=== PATIENT | female | born 1940 | race Caucasian/White ===

== ENCOUNTER → 2016-09-26 | Outpatient (CLI) | payer MEDICARE, OTHER ==
[~2016-09-26] MED LIST: CARI-277 PO; FENT12DI TD
== END | disposition home or self-care (01) ==
LOC: LAB 13:12
PROVIDERS: ATTEND Internal Medicine Gastroenterology
DX: B19.20 Unspecified viral hepatitis C without hepatic coma (principal)

== ENCOUNTER 2017-05-22 15:04 | Emergency (ER) | payer MEDICARE, MEDICAID ==
[~2017-05-22] VITALS: Ht 154.9 cm; Wt 61.2 kg
[2017-05-22 15:17] VITALS: BP 127/75
[2017-05-22] MEDS ORDERED: HYDROmorphone HCL 2 MG/ML VL IM ONE (16:00)
[2017-05-22] MEDS ORDERED: ONDANSETRON ODT 4 MG TAB PO ONE (16:00)
== END 2017-05-22 16:45 | disposition home or self-care (01) ==
LOC: ER 15:11
DX: S33.5XXA Sprain of ligaments of lumbar spine, initial encounter (principal); X58.XXXA Exposure to other specified factors, initial encounter; Y93.89 Activity, other specified; Y99.8 Other external cause status; I10 Essential (primary) hypertension; J45.909 Unspecified asthma, uncomplicated; G89.29 Other chronic pain; M54.5 Low back pain; Z90.49 Acquired absence of other specified parts of digestive tract; Z90.79 Acquired absence of other genital organ(s); Z79.899 Other long term (current) drug therapy; Y92.89 Other specified places as the place of occurrence of the external cause
CPT/HCPCS: 93005; 96372; 99283; J1170; Q0162

== ENCOUNTER → 2018-01-30 | Outpatient (CLI) | payer MEDICARE, OTHER | END | disposition home or self-care (01) | LOC: LAB 12:29 | PROVIDERS: ATTEND Physician Assistant | DX: R19.7 Diarrhea, unspecified (principal); R19.5 Other fecal abnormalities; I10 Essential (primary) hypertension | CPT/HCPCS: 87045; 87177; 87899 ==

== ENCOUNTER 2019-07-02 11:34 | Emergency (ER) | payer MEDICARE, OTHER ==
[~2019-07-02] VITALS: Ht 154.9 cm; Wt 61.2 kg
[2019-07-02] MEDS ORDERED: LIDOCAINE 1% HCL (LOCAL ANESTH.) INJ 20ML MDV IJ ONE (14:45)
[2019-07-02] MEDS ORDERED: BACITRACIN TOP OINT 1 UD PKG TOP ONE (15:30)
[2019-07-02] MEDS ORDERED: KETOROLAC TROMETH 60MG/2ML VIAL IM ONE (15:30)
[2019-07-02 15:54] VITALS: BP 135/54
== END 2019-07-02 15:51 | disposition home or self-care (01) ==
LOC: ER 11:34
DX: S61.411A Laceration without foreign body of right hand, initial encounter (principal); Z90.710 Acquired absence of both cervix and uterus; W21.09XA Struck by other hit or thrown ball, initial encounter; Y93.89 Activity, other specified; Y92.89 Other specified places as the place of occurrence of the external cause; Y99.8 Other external cause status
CPT/HCPCS: 12002; 96372; 99283; J1885; J2001

== ENCOUNTER → 2021-10-15 | Outpatient (CLI) | payer MEDICARE, MEDICAID | END | disposition home or self-care (01) | LOC: RT 11:06 | PROVIDERS: ATTEND Internal Medicine Pulmonary Disease | DX: J45.909 Unspecified asthma, uncomplicated (principal); R06.02 Shortness of breath | CPT/HCPCS: 94060; 94727; 94729 ==

== ENCOUNTER 2024-03-21 08:49 | Day surgery (SDC) | payer OTHER, MEDICAID ==
[2024-03-20 09:42] LABS: Urine Bacteria None Seen /hpf (None Seen)
[2024-03-20 09:47] LABS: Basophils # (auto) 0 10 ^3/uL (0-0.2); Basophils % (auto) 0.8 % (0.0-2.0); Eosinophils # (auto) 0.5 10 ^3/uL (0-0.8); Eosinophils % (auto) 9.6 % (0.0-7.0); Hematocrit 38.4 % (36.0-46.0); Hemoglobin 12.8 g/dL (12.2-16.2); Lymphocytes # (auto) 1.5 10 ^3/uL (0.4-5.4); Lymphocytes % (auto) 28.8 % (10.0-50.0); Mean Corpuscular Hemoglobin 29.9 pg (28.0-32.0); Mean Corpuscular Hgb Conc. 33.4 g/dL (32.0-36.0); Mean Corpuscular Volume 89.8 fL (80.0-100.0); Monocytes # (auto) 0.5 10 ^3/uL (0-1.3); Monocytes % (auto) 9.9 % (0.0-12.0); Neutrophils # (auto) 2.7 10 ^3/uL (1.6-8.6); Neutrophils % (auto) 50.9 % (37.0-80.0); Platelet Count (auto) 211 10^3/uL (140-450); Red Blood Cells 4.28 10^6/uL (4.0-5.20); Red Cell Distribution Width 13.8 % (11.8-14.3); White Blood Cell 5.2 10^3/uL (4.4-10.8)
[2024-03-20 09:59] LABS: Urine Blood Negative /uL (Negative); Urine Clarity Clear (Clear); Urine Color Yellow (Yellow); Urine Protein, UAD Negative (Negative); Urine Specific Gravity 1.012 (1.001-1.035); Urine Urobilinogen Normal (Negative); Urine WBC 2 /hpf (0 - 5); Urine pH 7.5 (5.0-9.0)
[2024-03-20 10:07] LABS: INR 0.96 (0.9-1.15); Partial Thromboplastin Time 26.2 SEC (24.5-34.5); Prothrombin Time 10.2 sec (9.3-11.8)
[2024-03-20 10:18] LABS: Alanine Aminotransferase 15 U/L (7-40); Alkaline Phosphatase 71 U/L (46-116); Anion Gap 6 (5-15); BUN/Creatinine Ratio 12.7 (10.0-20.0); Blood Urea Nitrogen 9 mg/dL (9-23); Carbon Dioxide 29 mmol/L (20-31); Chloride 109 mmol/L (98-107); Glucose 101 mg/dL (74-106); Potassium 4.6 mmol/L (3.5-5.1); Sodium 144 mmol/L (136-145)
[2024-03-20 10:19] LABS: Albumin 4.5 g/dL (3.2-4.8); Aspartate Aminotransferase 14 U/L (13-40); Bilirubin, Total 0.6 mg/dL (0.2-1.0); Total Protein 7.2 g/dL (5.7-8.2)
[~2024-03-21] VITALS: Ht 154.9 cm; Wt 58.1 kg
[~2024-03-21 08:49] MED LIST changes: -CARI-277 PO
[2024-03-21] MEDS ORDERED: fentaNYL CITRATE 100 MCG/2 ML VL ONE (13:08)
[2024-03-21] MEDS ORDERED: PROPOFOL 10 MG/ML 20 ML IV ONE (13:08)
--- NOTE | 2024-03-21 13:24 | DVHDS2 ---
New Physician D'charge PN Admitting Diagnosis Admitting Diagnosis Hemorrhagic cystitis Discharge Diagnosis Same Operations or Procedures Cystoscopy with biopsy and fulguration Reason(s) For Hospitalization Surgery Treatment Plan Discharge Condition of Discharge Fair Disposition Home Discharge Instructions Diet: Regular Activity: Light activity Activity comment: As tolerated Medications: Given Follow Up Care Follow Up/Referral: Follow-up two weeks for pathology results Discharge Statement: "Patient was advised to return to the ER or call 911 if any headaches, dizziness, shortness of breath, chest pain, abdominal pain, bleeding, fevers, or worsening of medical condition. Patient was counseled about treatment plan, medications, possible side effects, patientverbalized understanding. All questions were answered to the best of my ability. This discharge took greater then 30 minutes in planning, reviewing documenta tion, counseling the patient, and discussing with other team members." CATARINO SAGASTUME MD Mar 21, 2024 13:24
[2024-03-21] MEDS ORDERED: DexAMETHasone SOD PHOS 10MG/1ML VIAL INJ ONE (13:33)
[2024-03-21] MEDS ORDERED: ONDANSETRON HCL 4 MG/2 ML VIAL ONE (13:33)
[2024-03-21 13:56] VITALS: PULSE 79; RESP 18; TEMP 97.8; O2SAT 97
[2024-03-21 14:35] VITALS: BP 129/55; PULSE 65; RESP 15; O2SAT 98
== END 2024-03-21 14:50 | disposition home or self-care (01) ==
LOC: SUR 08:49
PROVIDERS: ATTEND Urology
DX: N30.80 Other cystitis without hematuria (principal); J44.9 Chronic obstructive pulmonary disease, unspecified; Z86.2 Personal history of diseases of the blood and blood-forming organs and certain disorders involving the immune mechanism; Z98.890 Other specified postprocedural states; Z88.5 Allergy status to narcotic agent; Z83.3 Family history of diabetes mellitus; Z82.5 Family history of asthma and other chronic lower respiratory diseases
CPT/HCPCS: 36415; 52204; 80053; 81001; 85025; 85610; 85730; 87086; J1100; J2405; J2704; J3010; J7030

== ENCOUNTER → 2024-05-31 | Outpatient (CLI) | payer OTHER ==
[2024-05-31 12:09] LABS: Basophils # (auto) 0.1 10 ^3/uL (0-0.2); Basophils % (auto) 1.2 % (0.0-2.0); Eosinophils # (auto) 0.1 10 ^3/uL (0-0.8); Eosinophils % (auto) 2.2 % (0.0-7.0); Hematocrit 39.3 % (36.0-46.0); Hemoglobin 13.1 g/dL (12.2-16.2); Lymphocytes % (auto) 43.6 % (10.0-50.0); Mean Corpuscular Hemoglobin 29.9 pg (28.0-32.0); Mean Corpuscular Hgb Conc. 33.4 g/dL (32.0-36.0); Mean Corpuscular Volume 89.6 fL (80.0-100.0); Monocytes # (auto) 0.3 10 ^3/uL (0-1.3); Monocytes % (auto) 7.6 % (0.0-12.0); Neutrophils # (auto) 2.1 10 ^3/uL (1.6-8.6); Neutrophils % (auto) 45.4 % (37.0-80.0); Nucleated Red Blood Cells % 0.1 %; Platelet Count (auto) 208 10^3/uL (140-450); Red Blood Cells 4.38 10^6/uL (4.0-5.20); Red Cell Distribution Width 13.4 % (11.8-14.3); White Blood Cell 4.6 10^3/uL (4.4-10.8)
[2024-05-31 12:33] LABS: Alanine Aminotransferase 20 U/L (7-40); Albumin 4.7 g/dL (3.2-4.8); Alkaline Phosphatase 67 U/L (46-116); Anion Gap 7 (5-15); Aspartate Aminotransferase 18 U/L (13-40); BUN/Creatinine Ratio 16.7 (10.0-20.0); Blood Urea Nitrogen 14 mg/dL (9-23); Calcium 10.4 mg/dL (8.7-10.4); Carbon Dioxide 27 mmol/L (20-31); Chloride 107 mmol/L (98-107); Glucose 96 mg/dL (74-106); Potassium 3.9 mmol/L (3.5-5.1); Sodium 141 mmol/L (136-145); Triglycerides 91 mg/dL (< 150)
[2024-05-31 12:34] LABS: Bilirubin, Total 0.8 mg/dL (0.2-1.0); Total Protein 7.6 g/dL (5.7-8.2)
[2024-05-31 12:39] LABS: Cholesterol 210 mg/dL (< 200); HDL Cholesterol 71 mg/dL (40-59); LDL Cholesterol 128 mg/dL (< 100)
[2024-05-31 12:40] LABS: Free T3 2.96 pg/mL (2.3-4.2)
[2024-05-31 12:41] LABS: Free T4 (Free Thyroxine) 0.99 ng/dL (0.89-1.76)
[2024-05-31 12:43] LABS: Urine Bacteria FEW /hpf (None Seen); Urine Blood 1+ /uL (Negative); Urine Budding Yeast OCCASIONAL /hpf (None Seen); Urine Clarity Clear (Clear); Urine Color Yellow (Yellow); Urine Mucus FEW (None Seen); Urine Protein, UAD TRACE (Negative); Urine Specific Gravity 1.025 (1.001-1.035); Urine Squamous Epithelial Cell FEW /hpf (<5); Urine Urobilinogen Normal (Negative); Urine WBC 9 /hpf (0 - 5)
== END | disposition home or self-care (01) ==
LOC: LAB 11:43
PROVIDERS: ATTEND Internal Medicine
DX: E55.9 Vitamin D deficiency, unspecified (principal); E78.5 Hyperlipidemia, unspecified; N39.0 Urinary tract infection, site not specified; R42 Dizziness and giddiness; I12.9 Hypertensive chronic kidney disease with stage 1 through stage 4 chronic kidney disease, or unspecified chronic kidney disease; N18.2 Chronic kidney disease, stage 2 (mild); Z13.1 Encounter for screening for diabetes mellitus
CPT/HCPCS: 36415; 80053; 80061; 80198; 81001; 82306; 83036; 84439; 84443; 84481; 85025; 86703

== ENCOUNTER 2024-07-11 16:06 | Emergency (ER) | payer OTHER, MEDICAID ==
[~2024-07-11] VITALS: Ht 157.5 cm; Wt 61.0 kg
[2024-07-11 16:14] VITALS: BP 132/71; PULSE 67; RESP 14; O2SAT 98
--- NOTE | 2024-07-11 16:33 | ED.PDOC ---
GI ASSESSMENT HPI Comments 84y F who presents to the ED for chief complaint of nausea and vomiting. Pt states she has been having epigastric abdominal pain since 3 AM earlier this AM. Pt states she has been having associated nasuea and vomiting since and states she has had 10 vomiting episodes since. Pt otherwise states the pain is non-radiating, constant, radiating to the upper chest, with no associated exacerbating or relieving factors. Pt denies any recent sick contacts or changes to diet. Pt otherwise denies any other symptoms at this time. 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 History Family History Family History: Unknown Social History Smoker: Non-Smoker Alcohol: Denies ETOH Use Drugs: Denies Drug Use Lives In: Home Constitutional: denies: chills, diaphoresis, fatigue, fever, malaise, sweats, weakness, others EENTM: denies: blurred vision, double vision, ear bleeding, ear discharge, ear drainage, ear pain, ear ringing, eye pain, eye redness, hearing loss, mouth pain, mouth swelling, nasal discharge, nose bleeding, nose congestion, nose pain, photophobia, tearing, throat pain, throat swelling, voice changes, others Respiratory: denies: cough, hemoptysis, orthopnea, SOB at rest, shortness of breath, SOB with excertion, stridor, wheezing, others Cardiovascular: reports: chest pain; denies: dizzy spells, diaphoresis, Dyspnea on exertion, edema, irregular heart beat, left arm pain, lightheadedness, palpitations, PND, syncope, others Gastrointestinal: reports: abdominal pain, nausea, vomiting; denies: abdomen distended, blood streaked bowels, constipated, diarrhea, dysphagia, difficulty swallowing, hematemesis, melena, poor appetite, poor fluid intake, rectal bleeding, rectal pain, others Genitourinary: denies: abnormal vagina bleeding, burning, dyspareunia, dysuria, flank pain, frequency, hematuria, incontinence, pain, , vagina discharge, urgency, others Neurological: denies: dizziness, fainting, headache, left sided numbness, left sided weakness, numbness, paresthesia, pre-existing deficit, right sided numbness, right sided weakness, seizure, speech problems, tingling, tremors, weakness, others Musculoskeletal: denies: back pain, gout, joint pain, joint swelling, muscle pain, muscle stiffness, neck pain, others Integumetry: denies: bruises, change in color, change in hair/nails, dryness, laceration, lesions, lumps, rash, wounds, others Allergic/Immunocompromised: denies: Difficulty Healing, Frequent Infections, Hives, Itching, others Hematologic/Lymphatic: denies: anemia, blood clots, easy bleeding, easy bruising, swollen glands, others Endocrine: denies: excessive hunger, excessive sweating, excessive thirst, excessive urination, flushing, intolerance to cold, intolerance to heat, unexplained weight gain, unexplained weight loss, others Psychiatric: denies: anxiety, bipolar disorder, depression, hopeless, panic disorder, schizophrenia, sleepless, suicidal, others All Other Systems: Reviewed and Negative Physical Exam General Appearance: Moderate Distress HEENT: Normal ENT Inspection, Pharynx Normal, TMs Normal Neck: Full Range of Motion, Non-Tender, Normal, Normal Inspection Respiratory: Chest Non-Tender, Lungs Clear, No Accessory Muscle Use, No Respiratory Distress, Normal Breath Sounds Cardiovascular: No Edema, No JVD, No Murmur, No Gallop, Normal Peripheral Pulses, Regular Rate/Rhythm Breast Exam: Deferred Gastrointestinal: No Organomegaly, Non Tender, No Pulsatile Mass, Normal Bowel Sounds, Soft Genitalia: Deferred Pelvic: Deferred Rectal: Deferred Extremities: No calf tenderness, Normal capillary refill, Normal inspection, Normal range of motion, Non-tender, No pedal edema Musculoskeletal : Apperance: Normal Neurologic: Alert, No Motor Deficits, No Sensory Deficits Cerebellar Function: NOT DONE Reflexes: NOT DONE Skin: Normal Color Peripheral Pulses: 3+ Radial (R), 3+ Radial (L) Lymphatic: No Adenopathy Was a procedure done? Was a procedure done?: No GI differential Dx Differential Diagnosis: Constipation, Diverticular disease, Esophagitis, Gastritis/PUD, Gastroenteritis, Pancreatitis, Dehydration, Food Poisoning, Bacterial, Viral X-Ray, Labs, Meds, VS Vital Signs Date Time Temp Pulse Resp B/P (MAP) Pulse Ox O2 Delivery O2 Flow Rate FiO2 07/11/24 16:14 97.9 67 14 132/71 (91) 98 07/11/24 16:10 65 Patient alert. Complaining of chest pain. Nausea. Vitals stable. Continues to have nausea chest pain. Establish intravenous access. Was given fluids. Was given morphine. Was given Zofran. She is at risk for coronary artery disease. Echocardiogram. Cardiology consultation. EKG reviewed does not show any acute changes. Stress test. Explained to the patient. Continue cardiac monitoring. Time of 1ST Reevaluation: 16:30 Reevaluation 1ST: Unchanged Patient Education/Counseling: Diagnosis, Treatment Family Education/Counseling: No Family Present Departure 1 Departure Time of Disposition: 16:56 Impression: Primary Impression: Chest pain of unknown etiology Disposition: ADMITTED INPATIENT Admit to: Med Surg Condition: Guarded Critical Care Note Critical Care Time?: No Stability Stability form required: No Heart Score Heart Score: Heart Score Response (Comments) Value History Slightly Suspicious 0 EKG Normal 0 Age >65 2 Risk Factors 1 or 2 risk factors 1 Troponin Normal limit 0 Total 3 I personally scribed for CINDA ALANIS MD ([email or web address]) on 07/11/24 at 16:33. Electronically submitted by Arnold Ferrari ([email or web address]). CINDA ALANIS MD Jul 11, 2024 16:33
[2024-07-11] MEDS ORDERED: MORPHINE SULFATE 4 MG/ML SYR/VIAL IV ONE (17:00)
[2024-07-11] MEDS ORDERED: ONDANSETRON HCL 4 MG/2 ML VIAL IV ONE (17:00)
--- NOTE | 2024-07-11 17:16 | DVH ---
CHEST RADIOGRAPH Indication: sob Technique: Single frontal view of the chest was obtained Comparison: None FINDINGS: Lines and Tubes: None Lungs: No focal consolidation. Pleura: No effusion. No pneumothorax. Cardiomediastinal contours: Unremarkable Bones: No acute osseous abnormality. IMPRESSION: 1. No acute cardiopulmonary disease.
[2024-07-11 17:57] LABS: Basophils # (auto) 0 10 ^3/uL (0-0.2); Basophils % (auto) 0.4 % (0.0-2.0); Eosinophils # (auto) 0 10 ^3/uL (0-0.8); Eosinophils % (auto) 0.2 % (0.0-7.0); Hematocrit 36.7 % (36.0-46.0); Hemoglobin 12.7 g/dL (12.2-16.2); Lymphocytes % (auto) 20.2 % (10.0-50.0); Mean Corpuscular Hemoglobin 30.2 pg (28.0-32.0); Mean Corpuscular Hgb Conc. 34.5 g/dL (32.0-36.0); Mean Corpuscular Volume 87.4 fL (80.0-100.0); Monocytes # (auto) 0.2 10 ^3/uL (0-1.3); Monocytes % (auto) 4.3 % (0.0-12.0); Neutrophils # (auto) 3.6 10 ^3/uL (1.6-8.6); Neutrophils % (auto) 74.9 % (37.0-80.0); Platelet Count (auto) 203 10^3/uL (140-450); Red Blood Cells 4.19 10^6/uL (4.0-5.20); Red Cell Distribution Width 13.8 % (11.8-14.3); White Blood Cell 4.8 10^3/uL (4.4-10.8)
[2024-07-11 18:03] LABS: Chloride 104 mmol/L (98-107); Potassium 3.8 mmol/L (3.5-5.1); Sodium 140 mmol/L (136-145)
[2024-07-11 18:04] LABS: Anion Gap 9 (5-15); Carbon Dioxide 27 mmol/L (20-31)
[2024-07-11 18:09] LABS: BUN/Creatinine Ratio 22.7 (10.0-20.0); Blood Urea Nitrogen 15 mg/dL (9-23)
[2024-07-11 18:10] LABS: Calcium 10.4 mg/dL (8.7-10.4); Glucose 115 mg/dL (74-106)
--- NOTE | 2024-07-12 10:45 | ECG ---
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
== END 2024-07-11 20:13 | disposition left against medical advice (07) ==
LOC: EDBD 16:06 → ER 16:06
DX: R07.89 Other chest pain (principal); R11.2 Nausea with vomiting, unspecified; Z90.710 Acquired absence of both cervix and uterus; Z88.5 Allergy status to narcotic agent
CPT/HCPCS: 36415; 71045; 80048; 84484; 85025; 93005

== ENCOUNTER → 2024-08-07 | Outpatient (CLI) | payer OTHER, MEDICAID ==
[~2024-08-07] VITALS: Ht 154.9 cm; Wt 57.6 kg
--- NOTE | 2024-08-13 14:38 | DVHSR ---
APPROVED REPORT Exam: Nuclear Stress Test Indication: Chest pain, Dizziness Ht: 5 ft 1 in Wt: 127 lbs BSA: 1.56 m2 HR: 60 bpm BP: 135/64 mmHg BMI: 23.99 Rhythm: NSR Medical History Medical History: Chest pain, Dizziness, Smoking Medications: Fentanyl patch, Motrin, Gabapentin Allergies: No known drug allergies Stress Test Details Stress Test: Exercise stress testing was performed using a Vick protocol. HR Resting HR: 60 bpmMax Heart Rate (APMHR): 138.693987 bpm Max HR Achieved: 127 bpmTarget HR (85% APMHR): 117.985648 bpm % of APMHR: 92.03 Recovery HR: 75 bpm HR response to stress: Normal HR response to stress BP Resting BP: 135/64 mmHg Max BP: 138/62 mmHg Recovery BP: 132/66 mmHg BP response to stress: Normal blood pressure response to stress. ECG Resting ECG: Sinus Rhythm Stress ECG: Sinus Tachycardia Arrhythmia: None Recovery ECG: Sinus Rhythm Clinical Reason for Termination: Target HR achieved Stress Symptoms: None Exercise duration: 3 min sec Exercise capacity: 4.6 METs Stress ECG Conclusion NON ISCHEMIC CLINICAL RESPONSE NON ISCHEMIC ECG RESPONSE PERFUSION SCAN SHOWS LESS THAN 10% LIKELIHOOD FOR STRESS INDUCED ISCHEMIA EF >55% NM EXAM: Myocardial Perfusion REST/STRESS Imaging Protocol: Rest Tc-99m/Stress Tc-99m 1 day Resting Data Rest SPECT myocardial perfusion imaging was performed in supine position 30 minutes following the int ravenous injection of 10.92 mCi of Tc-99m Sestamibi. Time of rest injection: 1408 Time of rest imagin Administration Route: IV Administration Site: Left AC Exercise Stress At peak stress, the patient was injected intravenously with 32.5 mCi of Tc-99m Sestamibi. Time of stress injection: 1510 Time of stress imagin Administration Route: IV Administration Site: Left AC Heart Rate at time of stress injection: 123 bpm. Patient continued to exercise for 1 minute(s). Gated Stress SPECT was performed 15 minutes after stress injection. The images were gated to evaluate regional wall motion and calculate left ventricular ejection fracti on. Comments Cardiolite injection at 1 minute, 33 seconds into test. Study Data Post stress, the left ventricular ejection was >55%.. Nuclear Conclusion NON ISCHEMIC CLINICAL RESPONSE NON ISCHEMIC ECG RESPONSE PERFUSION SCAN SHOWS LESS THAN 10% LIKELIHOOD FOR STRESS INDUCED ISCHEMIA EF >55%
== END | disposition home or self-care (01) ==
LOC: Rad HDHVI 13:50
PROVIDERS: ATTEND Internal Medicine Cardiovascular Disease
DX: R42 Dizziness and giddiness (principal); R00.1 Bradycardia, unspecified; R07.89 Other chest pain; F17.210 Nicotine dependence, cigarettes, uncomplicated; R00.0 Tachycardia, unspecified
CPT/HCPCS: 78452; 93017; A9500; 96374

== ENCOUNTER → 2024-08-08 | Outpatient (CLI) | payer OTHER, MEDICAID | END | disposition home or self-care (01) | LOC: Rad HDHVI 12:51 | PROVIDERS: ATTEND Internal Medicine Cardiovascular Disease | DX: R07.89 Other chest pain (principal) | CPT/HCPCS: 93306 ==

== ENCOUNTER → 2024-08-12 | Outpatient (CLI) | payer OTHER, MEDICAID | END | disposition home or self-care (01) | LOC: Rad HDHVI 11:00 | PROVIDERS: ATTEND Internal Medicine Cardiovascular Disease | DX: R07.89 Other chest pain (principal) | CPT/HCPCS: 93880 ==

== ENCOUNTER 2025-01-31 11:16 | Inpatient (IN) | payer OTHER, MEDICAID ==
[2025-01-31] VITALS (10 sets, daily range): BP systolic 94–134; BP diastolic 53–60; PULSE 60–80; RESP 16–20; TEMP 97.5–98.9; O2SAT 93–100
[~2025-01-31] VITALS: Ht 154.9 cm; Wt 63.8 kg
[2025-01-31 11:36] LABS: Hematocrit 38.6 % (36.0-46.0); Hemoglobin 13.1 g/dL (12.2-16.2); Mean Corpuscular Hemoglobin 30.3 pg (28.0-32.0); Mean Corpuscular Volume 89.6 fL (80.0-100.0); Nucleated Red Blood Cells % 0.0 %
[2025-01-31 11:44] LABS: Potassium 3.6 mmol/L (3.5-5.1); Sodium 144 mmol/L (136-145)
[2025-01-31 11:45] LABS: Anion Gap 10 (5-15); Calcium 9.7 mg/dL (8.7-10.4); Carbon Dioxide 26 mmol/L (20-31); Chloride 108 mmol/L (98-107)
[2025-01-31 11:50] LABS: BUN/Creatinine Ratio 12.3 (10.0-20.0); Blood Urea Nitrogen 9 mg/dL (9-23); Glucose 101 mg/dL (74-106)
--- NOTE | 2025-01-31 11:54 | ED.PDOC ---
SOB-HPI HPI Comments 84 y.o female with PMHx of bronchial asthma, presents to the ED for a chief complaint of SOB associated with a productive cough that started 2-3 days ago. Patient reports using multiple multiple breathing treatments at home but denies any relief. Additionally, patient reports left lower extremity numbness sensation associated with pain that radiates to the upper extremity. She denies any oxygen use at home, fever, chills, or chest pain. 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 Family History Family History: Unknown Social History Smoker: Non-Smoker Alcohol: Denies ETOH Use Drugs: Denies Drug Use Lives In: Home Constitutional: denies: chills, diaphoresis, fatigue, fever, malaise, sweats, weakness, others EENTM: denies: blurred vision, double vision, ear bleeding, ear discharge, ear drainage, ear pain, ear ringing, eye pain, eye redness, hearing loss, mouth pain, mouth swelling, nasal discharge, nose bleeding, nose congestion, nose pain, photophobia, tearing, throat pain, throat swelling, voice changes, others Respiratory: denies: cough, hemoptysis, orthopnea, SOB at rest, shortness of breath, SOB with excertion, stridor, wheezing, others Cardiovascular: denies: chest pain, dizzy spells, diaphoresis, Dyspnea on exertion, edema, irregular heart beat, left arm pain, lightheadedness, palpitations, PND, syncope, others Gastrointestinal: denies: abdomen distended, abdominal pain, blood streaked bowels, constipated, diarrhea, dysphagia, difficulty swallowing, hematemesis, melena, nausea, poor appetite, poor fluid intake, rectal bleeding, rectal pain, vomiting, others Genitourinary: denies: abnormal vagina bleeding, burning, dyspareunia, dysuria, flank pain, frequency, hematuria, incontinence, pain, , vagina discharge, urgency, others Neurological: reports: numbness (left sided lower extremity ); denies: dizziness, fainting, headache, left sided numbness, left sided weakness, paresthesia, pre-existing deficit, right sided numbness, right sided weakness, seizure, speech problems, tingling, tremors, weakness, others Musculoskeletal: reports: others (left sided pain ); denies: back pain, gout, joint pain, joint swelling, muscle pain, muscle stiffness, neck pain Integumetry: denies: bruises, change in color, change in hair/nails, dryness, laceration, lesions, lumps, rash, wounds, others Allergic/Immunocompromised: denies: Difficulty Healing, Frequent Infections, Hives, Itching, others Hematologic/Lymphatic: denies: anemia, blood clots, easy bleeding, easy bruising, swollen glands, others Endocrine: denies: excessive hunger, excessive sweating, excessive thirst, excessive urination, flushing, intolerance to cold, intolerance to heat, unexplained weight gain, unexplained weight loss, others Psychiatric: denies: anxiety, bipolar disorder, depression, hopeless, panic disorder, schizophrenia, sleepless, suicidal, others Physical Exam General Appearance: Moderate Distress HEENT: Normal ENT Inspection, Pharynx Normal, TMs Normal Neck: Full Range of Motion, Non-Tender, Normal, Normal Inspection Respiratory: Respiratory Distress, Wheezing Cardiovascular: No Edema, No JVD, No Murmur, No Gallop, Normal Peripheral Pulses, Regular Rate/Rhythm Breast Exam: Deferred Gastrointestinal: No Organomegaly, Non Tender, No Pulsatile Mass, Normal Bowel Sounds, Soft Genitalia: Deferred Pelvic: Deferred Rectal: Deferred Extremities: No calf tenderness, No pedal edema Musculoskeletal : Apperance: Normal Neurologic: Alert, injection press operator II-XII nml as Tested, No Motor Deficits, Normal Affect, Normal Mood, No Sensory Deficits Cerebellar Function: NOT DONE Reflexes: NOT DONE Skin: Normal Color Peripheral Pulses: 3+ Radial (R), 3+ Radial (L) Lymphatic: No Adenopathy Was a procedure done? Was a procedure done?: No Differential Dx Differential Diagnosis: Anxiety, Asthma, Bronchitis, CHF, COPD, Pneumonia, Respiratory Distress, URI X-Ray, Labs, Meds, VS Vital Signs Date Time Temp Pulse Resp B/P (MAP) Pulse Ox O2 Delivery O2 Flow Rate FiO2 01/31/25 11:23 81 01/31/25 11:17 98.1 95 20 135/61 99 98.1 Lab Test 01/31/25 11:24 Range/Units White Blood Count 4.5 4.4-10.8 10^3/uL Red Blood Count 4.31 4.0-5.20 10^6/uL Hemoglobin 13.1 12.2-16.2 g/dL Hematocrit 38.6 36.0-46.0 % Mean Corpuscular Volume 89.6 80.0-100.0 fL Mean Corpuscular Hemoglobin 30.3 28.0-32.0 pg Mean Corpuscular Hemoglobin Concent 33.9 32.0-36.0 g/dL Red Cell Distribution Width 13.7 11.8-14.3 % Platelet Count 201 140-450 10^3/uL Mean Platelet Volume 8.5 6.9-10.8 fL Neutrophils (%) (Auto) 57.7 37.0-80.0 % Lymphocytes (%) (Auto) 30.8 10.0-50.0 % Monocytes (%) (Auto) 9.5 0.0-12.0 % Eosinophils (%) (Auto) 1.2 0.0-7.0 % Basophils (%) (Auto) 0.8 0.0-2.0 % Neutrophils # (Auto) 2.6 1.6-8.6 10 ^3/uL Lymphocytes # (Auto) 1.4 0.4-5.4 10 ^3/uL Monocytes # (Auto) 0.4 0-1.3 10 ^3/uL Eosinophils # (Auto) 0.1 0-0.8 10 ^3/uL Basophils # (Auto) 0 0-0.2 10 ^3/uL Nucleated Red Blood Cells 0.0 % Sodium Level 144 136-145 mmol/L Potassium Level 3.6 3.5-5.1 mmol/L Chloride Level 108 H 98-107 mmol/L Carbon Dioxide Level 26 20-31 mmol/L Anion Gap 10 5-15 Blood Urea Nitrogen 9 9-23 mg/dL Creatinine 0.73 0.550-1.02 mg/dL Glomerular Filtration Rate Calc 82 >90 mL/min BUN/Creatinine Ratio 12.3 10.0-20.0 Serum Glucose 101 74-106 mg/dL Calcium Level 9.7 8.7-10.4 mg/dL Troponin I High Sensitivity < 3 L </=34 ng/L Patient alert. Complaining of shortness a breath. Vitals stable. Answering questions. Placed on oxygen. Cardiac marker within normal limits. WBC within normal limits. Hemoglobin within normal limits. Was given steroid. Was given breathing treatment. Possible pneumonitis. Was given Rocephin. Given azithromycin. Explained to the patient. Continue monitoring. Chest XR: FINDINGS: Lines and Tubes: None Lungs: Clear Pleura: No effusion. No pneumothorax. Cardiomediastinal contours: Unremarkable Bones: Unremarkable IMPRESSION: No acute disease. Time of 1ST Reevaluation: 11:47 Reevaluation 1ST: Unchanged Patient Education/Counseling: Diagnosis, Treatment, Prognosis Family Education/Counseling: No Family Present SEPSIS Sepsis Screen Date sepsis recognized/suspect: Jan 31, 2025 Time Sepsis recognized/suspect: 1117 Recent Procedure: No On Antibiotic Therapy: No Respiratory Rate >20: No Heart Rate >90: Yes Temp<36 C (96.8 F) or >38.3 C: No SBP <90 or MAP <65 mmHG: No New Acute Mental Status Change: No Is the patient on CPAP, BIPAP,: No Physician Orders Chest Portable (01/31/25 11:20) Urinalysis (01/31/25 11:20) Troponin-I Hs (01/31/25 12:20) Troponin-I Hs (01/31/25 14:20) Electrocardigram (01/31/25 11:27) Ceftriaxone 1gm/50ml (Rocephin) (01/31/25 12:00) Azithromycin 500mg/ 250ml (Zithromax 50 (01/31/25 12:00) Vital Signs Date Time Temp Pulse Resp B/P (MAP) Pulse Ox O2 Delivery O2 Flow Rate FiO2 01/31/25 11:23 81 01/31/25 11:17 98.1 95 20 135/61 99 98.1 Laboratory Tests Test 01/31/25 11:24 White Blood Count 4.5 10^3/uL (4.4-10.8) Departure 1 Departure Time of Disposition: 11:56 Impression: Primary Impression: Acute respiratory distress Additional Impression: Pneumonitis Disposition: ADMITTED INPATIENT Admit to: Med Surg Condition: Guarded Critical Care Note Critical Care Time?: Yes (90 min-critical care time only) Stability Stability form required: No Heart Score Heart Score: Heart Score Response (Comments) Value History Slightly Suspicious 0 EKG Normal 0 Age >65 2 Risk Factors >3 or Hx ASHD 2 Troponin Normal limit 0 Total 4 I personally scribed for CINDA ALANIS MD ([email or web address]) on 01/31/25 at 11:54. Electronically submitted by [facility] ([email or web address] I personally scribed for CINDA ALANIS MD ([email or web address]) on 01/31/25 at 12:20. Electronically submitted by Shaheen Mendosa ([email or web address]). CINDA ALANIS MD Jan 31, 2025 11:54
--- NOTE | 2025-01-31 12:09 | DVH ---
CHEST RADIOGRAPH Indication: sob Technique: Single frontal view of the chest was obtained COMPARISON: XY CHEST PORTABLE on DOS: 07/11/24, XY CHEST TWO VIEWS ROUTINE on DOS: 03/20/24, CT CHEST WITHOUT CONTRAST on DOS: 09/14/23, XY CHEST PORTABLE on DOS: 09/14/23, XY CHEST TWO VIEWS ROUTINE on DO S: 04/07/23 FINDINGS: Lines and Tubes: None Lungs: Clear Pleura: No effusion. No pneumothorax. Cardiomediastinal contours: Unremarkable Bones: Unremarkable IMPRESSION: No acute disease.
[2025-01-31] MEDS: IPRATROPIUM BROM 0.5 MG/2.5ML INH SOL NEB ONE (12:33)
[2025-01-31] MEDS: ALBUTEROL SULF 2.5 MG/0.5ML(0.5%) NEB SOLN NEB ONE (12:33)
--- NOTE | 2025-01-31 12:47 | DVHHP2 ---
History of Present Illness Reason for Visit: Shortness of the breath History of Present Illness 84-year-old female past medical history bronchial asthma pneumonia surgical history hysterectomy chief complaint patient states she has been short of breath for the past three days she states she took an inhaler despite this her shor tness of the breath did not improve she has a history asthma she states she comes here pretty often for the same type of symptoms and usually she ended up with developing pneumonia after the exacerbation last time she was here was in 2023 she states nothing making it better she was in severe shortness of the breath when she went to the urgent care today so they sent her over to the ED for evaluation. When evaluating patient's labs and imaging CBC was unremarkable CMP unremarkable troponin was negative albuterol was provided along with Atrovent Solu-Medrol azithromycin ceftriaxone was given chest x-ray was normal with these findings we will admit for IV steroids and treatments around the clock Past Medical History See HPI above Past Surgical History See HPI above Family History Reviewed, non-contributory to the management of this case. Past Social History The patient lives at home, denies smoking, alcohol or illicit drugs abuse. Review of Systems Constitutional: No: Fever, Chills, Sweats, Weakness, Malaise, Other Eyes: No: Pain, Vision change, Conjunctivae inflammation, Eyelid inflammation, Other, Redness ENT: No: Ear pain, Ear discharge, Nose pain, Nose discharge, Nose congestion, Mouth pain, Mouth swelling, Throat pain, Throat swelling, Other Respiratory: Shortness of breath, SOB with excertion, Wheezing; No: Cough, Dry, Hemoptysis, Pleuritic Pain, Sputum, Wheezing, Other Cardiovascular: No: Chest Pain, Palpitations, Orthopnea, Paroxysmal Noc. Dyspnea, Edema, Lt Headedness, Other Gastrointestinal: No: Nausea, Vomiting, Abdominal Pain, Diarrhea, Constipation, Melena, Hematochezia, Other Genitourinary: No Dysuria, No Frequency, No Incontinence, No Hematuria, No Retention, No Other Musculoskeletal: No: other, neck pain, shoulder pain, arm pain, back pain, hand pain, leg pain, foot pain Skin: No: Rash, Lesions, Jaundice, Bruising, Other Neurological: No: Weakness, Numbness, Incoordination, Change in speech, Confusion, Seizures, Other Allergies: Coded Allergies: Codeine (Unverified Allergy, Intermediate, Severe N/V, 01/31/25) Exam Vital Signs Vital Signs Date Time Temp Pulse Resp B/P (MAP) Pulse Ox O2 Delivery O2 Flow Rate FiO2 01/31/25 11:23 81 01/31/25 11:17 98.1 20 135/61 99 98.1 General Appearance: Alert, Oriented X3, Cooperative, No acute distress HEENT: Atraumatic, PERRLA, EOMI, Mucous membr. moist/pink Respiratory: Other (Coarse wheezes heard throughout) Cardiovascular: Regular rate, Normal S1, Normal S2, No murmurs Abdominal: Normal bowel sounds, Soft, No tenderness, No hepatospenomegaly, No masses Extremities: No clubbing, No cyanosis, No edema, Normal pulses, No tenderness/swelling Skin: No rashes, No breakdown, No significant lesion Neuro: Normal gait, Normal speech, Strength at 5/5 X4 ext, Normal tone, Sensation intact, Cranial nerves 3-12 NL Psych/Mental Status: Mental status NL, Mood NL Labs/Xrays Chest x-ray unremarkable I reviewed labs, imaging CT scan abdomen pelvis, EKG and all diagnostic studies on this patient from ED records and the medical chart Labs Test 01/31/25 11:24 Range/Units White Blood Count 4.5 4.4-10.8 10^3/uL Red Blood Count 4.31 4.0-5.20 10^6/uL Hemoglobin 13.1 12.2-16.2 g/dL Hematocrit 38.6 36.0-46.0 % Mean Corpuscular Volume 89.6 80.0-100.0 fL Mean Corpuscular Hemoglobin 30.3 28.0-32.0 pg Mean Corpuscular Hemoglobin Concent 33.9 32.0-36.0 g/dL Red Cell Distribution Width 13.7 11.8-14.3 % Platelet Count 201 140-450 10^3/uL Mean Platelet Volume 8.5 6.9-10.8 fL Neutrophils (%) (Auto) 57.7 37.0-80.0 % Lymphocytes (%) (Auto) 30.8 10.0-50.0 % Monocytes (%) (Auto) 9.5 0.0-12.0 % Eosinophils (%) (Auto) 1.2 0.0-7.0 % Basophils (%) (Auto) 0.8 0.0-2.0 % Neutrophils # (Auto) 2.6 1.6-8.6 10 ^3/uL Lymphocytes # (Auto) 1.4 0.4-5.4 10 ^3/uL Monocytes # (Auto) 0.4 0-1.3 10 ^3/uL Eosinophils # (Auto) 0.1 0-0.8 10 ^3/uL Basophils # (Auto) 0 0-0.2 10 ^3/uL Nucleated Red Blood Cells 0.0 % Sodium Level 144 136-145 mmol/L Potassium Level 3.6 3.5-5.1 mmol/L Chloride Level 108 H 98-107 mmol/L Carbon Dioxide Level 26 20-31 mmol/L Anion Gap 10 5-15 Blood Urea Nitrogen 9 9-23 mg/dL Creatinine 0.73 0.550-1.02 mg/dL Glomerular Filtration Rate Calc 82 >90 mL/min BUN/Creatinine Ratio 12.3 10.0-20.0 Serum Glucose 101 74-106 mg/dL Calcium Level 9.7 8.7-10.4 mg/dL Troponin I High Sensitivity < 3 L </=34 ng/L SEPSIS Sepsis Screen Date sepsis recognized/suspect: Jan 31, 2025 Time Sepsis recognized/suspect: 1117 Recent Procedure: No On Antibiotic Therapy: No Respiratory Rate >20: No Heart Rate >90: Yes Temp<36 C (96.8 F) or >38.3 C: No SBP <90 or MAP <65 mmHG: No New Acute Mental Status Change: No Is the patient on CPAP, BIPAP,: No Physician Orders Chest Portable (01/31/25 11:20) Urinalysis (01/31/25 11:20) Troponin-I Hs (01/31/25 12:20) Troponin-I Hs (01/31/25 14:20) Electrocardigram (01/31/25 11:27) Azithromycin 500mg/ 250ml (Zithromax 50 (01/31/25 12:00) Vital Signs Date Time Temp Pulse Resp B/P (MAP) Pulse Ox O2 Delivery O2 Flow Rate FiO2 01/31/25 11:23 81 01/31/25 11:17 98.1 95 20 135/61 99 98.1 Laboratory Tests Test 01/31/25 11:24 White Blood Count 4.5 10^3/uL (4.4-10.8) Assessment/Plan Assessment/Plan Acute hypoxic respiratory distress likely related to acute asthma exacerbation cxr normal cont o2 to keep sats >92% if pt have resp distress repeat abg to expect resp failure ordered Albuterol and Atrovent atc ordered solumedrol ordered covid negative follow up influenza ordered ceftriaxone and azithromax for now Acute asthma exacerbation ordered Solu-Medrol ordered DuoNeb treatment every 4 hours consider bipAP if resp distress is worsening chronic problems bronchial asthma pna fen/ppx PUD prophylaxis protonix DVT prophylaxis lovenox diet hl plan admit to medicine for tx and steroids Plan discussed with: Patient Date of Service: Jan 31, 2025 Billing Provider: VITOR POTTS DNP Common Visit Codes: [id number] INP/OBS CARE (HIGH) VITOR POTTS DNP Jan 31, 2025 12:47
[2025-01-31] MEDS ORDERED: ONDANSETRON HCL 4 MG/2 ML VIAL IV PRN (13:00)
[2025-01-31] MEDS: SODIUM CHLORIDE 0.9% 1,000 ML IV SCH (13:00)
[2025-01-31] MEDS ORDERED: NITROGLYCERIN 0.4 MG SL TAB SL PRN (13:45)
[2025-01-31] MEDS: IPRATROPIUM BROM 0.5 MG/2.5ML INH SOL NEB SCH (14:28)
[2025-01-31] MEDS: ALBUTEROL SULF 2.5 MG/0.5ML(0.5%) NEB SOLN NEB SCH (14:28)
[2025-01-31] MEDS: methylPREDNISolone SOD SUCC 40 MG/ML VL IV SCH (14:57)
[2025-01-31] MEDS: methylPREDNISolone SOD SUCC 125 MG/2 ML VL IV ONE (15:28)
[2025-01-31] MEDS: PANTOPRAZOLE 40 MG/10 ML VIAL INJ IV ONE (15:29)
[2025-01-31 17:36] LABS: COVID19 ANTIGEN SOFIA FIA NEGATIVE (NEGATIVE)
[2025-01-31] MEDS: AZITHROMYCIN 500MG/ 250ML 250 ML IV ONE (18:05)
[2025-01-31] MEDS: MORPHINE SULFATE INJ 2 MG/ml SYRG IV PRN (21:49)
[2025-02-01] VITALS (18 sets, daily range): BP systolic 106–118; BP diastolic 49–63; PULSE 62–96; RESP 16–20; TEMP 97.4–98.3; O2SAT 94–99
[2025-02-01 07:00] LABS: Hematocrit 35.1 % (36.0-46.0); Hemoglobin 12.2 g/dL (12.2-16.2); Mean Corpuscular Hemoglobin 30.7 pg (28.0-32.0); Mean Corpuscular Volume 88.6 fL (80.0-100.0); Nucleated Red Blood Cells % 0.1 %
[2025-02-01 07:16] LABS: Alanine Aminotransferase 15 U/L (7-40); Albumin 4.1 g/dL (3.2-4.8); Alkaline Phosphatase 59 U/L (46-116); Anion Gap 9 (5-15); BUN/Creatinine Ratio 19.4 (10.0-20.0); Blood Urea Nitrogen 13 mg/dL (9-23); Calcium 9.1 mg/dL (8.7-10.4); Carbon Dioxide 22 mmol/L (20-31); Potassium 4.1 mmol/L (3.5-5.1); Sodium 140 mmol/L (136-145); Total Protein 6.7 g/dL (5.7-8.2)
[2025-02-01 07:18] LABS: Bilirubin, Total 0.5 mg/dL (0.2-1.0); Chloride 109 mmol/L (98-107); Glucose 147 mg/dL (74-106)
[2025-02-01] MEDS: ENOXAPARIN SOD 40 MG/0.4 ML SYRINGE SC SCH (09:24)
[2025-02-01] MEDS: PANTOPRAZOLE 40 MG/10 ML VIAL INJ IV SCH (09:24)
[2025-02-01] MEDS: AZITHROMYCIN 500MG/ 250ML 250 ML IV SCH (10:20)
[2025-02-01 13:23] LABS: Urine Protein, UAD Negative (Negative)
--- NOTE | 2025-02-01 14:25 | DVHPN2 ---
Subjective The patient is seen and examined at bedside. Complain of shortness for breath. Reviewed: Care Plan, H&P, Labs, Medications, Previous Orders, Radiology Changes from previous H/P or p: No Changes Eyes: No Pain, No Vision change, No Conjunctivae inflammation, No Eyelid inflammation, No Other, No Redness ENT: No Ear pain, No Ear discharge, No Nose pain, No Nose discharge, No Nose congestion, No Mouth pain, No Mouth swelling, No Throat pain, No Throat swelling, No Other Cardiovascular: No Chest Pain, No Palpitations, No Orthopnea, No Paroxysmal Noc. Dyspnea, No Edema, No Lt Headedness, No Other Respiratory: No Cough, No Dry; Shortness of breath, SOB with excertion, W heezing; No Hemoptysis, No Pleuritic Pain, No Sputum, No Other Gastrointestinal: No Nausea, No Vomiting, No Abdominal Pain, No Diarrhea, No Constipation, No Melena, No Hematochezia, No Other Genitourinary: No Dysuria, No Frequency, No Incontinence, No Hematuria, No Retention, No Other Musculoskeletal: No other, No neck pain, No shoulder pain, No arm pain, No back pain, No hand pain, No leg pain, No foot pain Skin: No Rash, No Lesions, No Jaundice, No Bruising, No Other Objective Vitals Vital Signs Date Time Temp Pulse Resp B/P (MAP) Pulse Ox O2 Delivery O2 Flow Rate FiO2 02/01/25 14:23 93 18 99 02/01/25 13:00 97.5 107/54 (71) 97.5 02/01/25 10:00 Room Air* 0 21 Intake/Output Intake and Output 02/01/25 07:00 Intake Total 400 ml Balance 400 ml Intake Oral 400 ml # Voids 5 General Appearance: Alert, Oriented X3, Cooperative, No acute distress HEENT: Atraumatic, PERRLA, EOMI, Mucous membr. moist/pink Neck: Supple Lungs: Clear to auscultation, Normal air movement Cardiovascular: Regular rate, Normal S1, Normal S2, No murmurs, Gallops, Rubs Abdomen: Normal bowel sounds, Soft, No tenderness Neuro: Cranial nerves 3-12 NL Psych/Mental Status: Mental status NL Medications Current Medications Medications Dose Ordered Sig/Shira Route Start Time Stop Time Status Last Admin Dose Admin Albuterol 2.5 mg Q4HR NEB 01/31/25 14:00 02/01/25 14:22 2.5 MG Ipratropium [place] 0.5 mg Q4HR NEB 01/31/25 14:00 02/01/25 14:22 0.5 MG Methylprednisolone Sodium Succinate 40 mg Q8HR IV 01/31/25 14:00 02/01/25 05:14 40 MG Sodium Chloride 1,000 ml @ 70 mls/hr [id number] IV 01/31/25 13:00 02/01/25 03:53 70 MLS/HR Ondansetron HCl 4 mg Q4HP PRN IV 01/31/25 13:00 Docusate Sodium 100 mg BIDPRN PRN PO 01/31/25 13:00 Enoxaparin Sodium 40 mg DAILY SC 02/01/25 10:00 02/01/25 09:24 40 MG Morphine Sulfate 2 mg Q4HPRN PRN IV 01/31/25 13:00 01/31/25 21:49 2 MG Pantoprazole Sodium 40 mg DAILY IV 02/01/25 10:00 02/01/25 09:24 40 MG Nitroglycerin 0.4 mg Q5MINP PRN SL 01/31/25 13:45 Ceftriaxone Sodium 50 ml @ 100 mls/hr DAILY@09 IV 02/01/25 09:00 02/01/25 09:24 100 MLS/HR Azithromycin 250 ml @ 125 mls/hr DAILY IV 02/01/25 10:00 02/01/25 10:20 125 MLS/HR Laboratory Results Laboratory Tests 02/01/25 06:14 Chemistry Test 02/01/25 06:14 Albumin 4.1 g/dL (3.2-4.8) Calcium Level 9.1 mg/dL (8.7-10.4) Total Protein 6.7 g/dL (5.7-8.2) LFT Test 02/01/25 06:14 Alanine Aminotransferase (ALT) 15 U/L (7-40) Alkaline Phosphatase 59 U/L (46-116) Aspartate Amino Transferase (AST) 17 U/L (13-40) Total Bilirubin 0.5 mg/dL (0.2-1.0) Urinalysis Test 01/31/25 12:36 Urine Color Light-yellow (Yellow) Urine Clarity Clear (Clear) Urine pH 6.5 (5.0-9.0) Urine Specific [place] 1.016 (1.001-1.035) Urine Protein Negative (Negative) Urine Ketones 1+ (Negative) H Urine Blood Negative /uL (Negative) Urine Nitrite Negative (Negative) Urine Bilirubin Negative (Negative) Urine Urobilinogen Normal mg/dL (Negative) Urine Leukocyte Esterase Negative /uL (Negative) Urine RBC 8 /hpf (0 - 4) Urine Microscopic WBC 1 /HPF (0-5) Urine Squamous Epithelial Cells Few /hpf (<5) Urine Bacteria None seen /hpf (None Seen) Urine Glucose 1+ mg/dL (Normal) H Labs and/or images reviewed: Labs reviewed by me Assessment/Plan Assessment/Plan Acute hypoxic respiratory distress likely related to acute asthma exacerbation Acute asthma exacerbation Pneumonia secondary to Gram-positive pneumonia Cough Continuing current management. Continuing with IV antibiotic Rocephin and Zithromax. Continuing with Solu-Medrol. Continuing with nebulizer. Robitussin p.r.n. for cough This medical document was created using an electronic medical record system with [employer] direct computerized dictation system. Although this document has been carefully reviewed, there may still be some phonetic and typographical errors. These areas are purely typographical due to imperfections of the software programs, and do not reflect any compromise in the patient's medical care. Plan discussed with: Patient Date of Service: Feb 01, 2025 Billing Provider: NADYA LANDRY MD Common Visit Codes: [id number] INP/OBS CARE(HIGH) NADYA LANDRY MD Feb 01, 2025 14:25
[2025-02-01] MEDS: GABAPENTIN 300 MG CAP PO SCH (20:33)
[2025-02-01] MEDS: DOCUSATE SOD 100 MG CAP PO PRN (20:33)
[2025-02-02] VITALS (20 sets, daily range): BP systolic 104–233; BP diastolic 35–87; PULSE 68–105; RESP 14–20; TEMP 97.3–98; O2SAT 94–99
--- NOTE | 2025-02-02 21:49 | DVHPN2 ---
Subjective The patient is seen and examined at bedside. Complain of shortness for breath. Complain Of severe wheezing. Reviewed: Care Plan, H&P, Labs, Medications, Previous Orders, Radiology Changes from previous H/P or p: No Changes Eyes: No Pain, No Vision change, No Conjunctivae inflammation, No Eyelid inflammation, No Other, No Redness ENT: No Ear pain, No Ear discharge, No Nose pain, No Nose discharge, No Nose congestion, No Mouth pain, No Mouth swelling, No Throat pain, No Throat swelling, No Other Cardiovascular: No Chest Pain, No Palpitations, No Orthopnea, No Paroxysmal Noc. Dyspnea, No Edema, No Lt Headedness, No Other Respiratory: No Cough, No Dry; Shortness of breath, SOB with excertion, W heezing; No Hemoptysis, No Pleuritic Pain, No Sputum, No Other Gastrointestinal: No Nausea, No Vomiting, No Abdominal Pain, No Diarrhea, No Constipation, No Melena, No Hematochezia, No Other Genitourinary: No Dysuria, No Frequency, No Incontinence, No Hematuria, No Retention, No Other Musculoskeletal: No other, No neck pain, No shoulder pain, No arm pain, No back pain, No hand pain, No leg pain, No foot pain Skin: No Rash, No Lesions, No Jaundice, No Bruising, No Other Objective Vitals Vital Signs Date Time Temp Pulse Resp B/P (MAP) Pulse Ox O2 Delivery O2 Flow Rate FiO2 02/02/25 18:25 89 20 99 02/02/25 18:17 Room Air* 0 21 02/02/25 17:15 97.3 121/87 (98) 97.3 Intake/Output Intake and Output 02/02/25 07:00 Intake Total 4240 ml Balance 4240 ml Intake Oral 3240 ml IV Total 1000 ml # Voids 12 General Appearance: Alert, Oriented X3, Cooperative, No acute distress HEENT: Atraumatic, PERRLA, EOMI, Mucous membr. moist/pink Neck: Supple Lungs: Clear to auscultation, Normal air movement Cardiovascular: Regular rate, Normal S1, Normal S2, No murmurs, Gallops, Rubs Abdomen: Normal bowel sounds, Soft, No tenderness Neuro: Cranial nerves 3-12 NL Psych/Mental Status: Mental status NL Medications Current Medications Medications Dose Ordered Sig/Shira Route Start Time Stop Time Status Last Admin Dose Admin Albuterol 2.5 mg Q4HR NEB 01/31/25 14:00 02/02/25 18:17 2.5 MG Ipratropium [place] 0.5 mg Q4HR NEB 01/31/25 14:00 02/02/25 18:17 0.5 MG Methylprednisolone Sodium Succinate 40 mg Q8HR IV 01/31/25 14:00 02/02/25 21:08 40 MG Sodium Chloride 1,000 ml @ 70 mls/hr [id number] IV 01/31/25 13:00 02/02/25 06:28 70 MLS/HR Ondansetron HCl 4 mg Q4HP PRN IV 01/31/25 13:00 Docusate Sodium 100 mg BIDPRN PRN PO 01/31/25 13:00 02/02/25 10:50 100 MG Enoxaparin Sodium 40 mg DAILY SC 02/01/25 10:00 02/01/25 09:24 40 MG Morphine Sulfate 2 mg Q4HPRN PRN IV 01/31/25 13:00 01/31/25 21:49 2 MG Pantoprazole Sodium 40 mg DAILY IV 02/01/25 10:00 02/02/25 10:51 40 MG Nitroglycerin 0.4 mg Q5MINP PRN SL 01/31/25 13:45 Ceftriaxone Sodium 50 ml @ 100 mls/hr DAILY@09 IV 02/01/25 09:00 02/02/25 09:35 100 MLS/HR Azithromycin 250 ml @ 125 mls/hr DAILY IV 02/01/25 10:00 02/02/25 10:51 125 MLS/HR Gabapentin 300 mg TID PO 02/01/25 22:00 02/02/25 21:10 300 MG Laboratory Results Laboratory Tests 02/01/25 06:14 Urinalysis Test 01/31/25 12:36 Urine Color Light-yellow (Yellow) Urine Clarity Clear (Clear) Urine pH 6.5 (5.0-9.0) Urine Specific [place] 1.016 (1.001-1.035) Urine Protein Negative (Negative) Urine Ketones 1+ (Negative) H Urine Blood Negative /uL (Negative) Urine Nitrite Negative (Negative) Urine Bilirubin Negative (Negative) Urine Urobilinogen Normal mg/dL (Negative) Urine Leukocyte Esterase Negative /uL (Negative) Urine RBC 8 /hpf (0 - 4) Urine Microscopic WBC 1 /HPF (0-5) Urine Squamous Epithelial Cells Few /hpf (<5) Urine Bacteria None seen /hpf (None Seen) Urine Glucose 1+ mg/dL (Normal) H Labs and/or images reviewed: Labs reviewed by me Assessment/Plan Assessment/Plan Acute hypoxic respiratory distress likely related to acute asthma exacerbation Acute asthma exacerbation Pneumonia secondary to Gram-positive pneumonia Cough Continuing current management. Continuing with IV antibiotic Rocephin and Zithromax. Continuing with Solu-Medrol. Continuing with nebulizer. Robitussin p.r.n. for cough Pulmonology consulted for acute respiratory failure This medical document was created using an electronic medical record system with [employer] computerized dictation system. Although this document has been carefully reviewed, there may still be some phonetic and typographical errors. These areas are purely typographical due to imperfections of the software programs, and do not reflect any compromise in the patient's medical care. Plan discussed with: Patient My Orders Orders - NADYA LANDRY MD Procedure Category Date Status Time *Consult CONS 02/02/25 Transmitted / 14:30 Date of Service: Feb 02, 2025 Billing Provider: NADYA LANDRY MD Common Visit Codes: [id number] INP/OBS CARE(HIGH) NADYA LANDRY MD Feb 02, 2025 21:49
[2025-02-03] VITALS (20 sets, daily range): BP systolic 113–124; BP diastolic 42–61; PULSE 65–88; RESP 8–20; TEMP 97.9–98.1; O2SAT 92–99
[2025-02-03 07:02] LABS: Hematocrit 33.1 % (36.0-46.0); Hemoglobin 11.5 g/dL (12.2-16.2); Mean Corpuscular Hemoglobin 30.9 pg (28.0-32.0); Mean Corpuscular Volume 89.1 fL (80.0-100.0); Nucleated Red Blood Cells % 0.0 %
[2025-02-03 07:06] LABS: Potassium 4.1 mmol/L (3.5-5.1); Sodium 144 mmol/L (136-145)
[2025-02-03 07:07] LABS: Anion Gap 10 (5-15); Carbon Dioxide 25 mmol/L (20-31)
[2025-02-03 07:08] LABS: Calcium 9.4 mg/dL (8.7-10.4)
[2025-02-03 07:13] LABS: BUN/Creatinine Ratio 16.7 (10.0-20.0); Blood Urea Nitrogen 12 mg/dL (9-23)
[2025-02-03 07:20] LABS: Chloride 109 mmol/L (98-107); Glucose 127 mg/dL (74-106)
--- NOTE | 2025-02-03 10:43 | ECG ---
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
--- NOTE | 2025-02-03 10:56 | DVHPN2 ---
Subjective The patient is seen and examined at bedside. Complain of shortness for breath. Complain Of severe wheezing. State that respiratory treatment only last couple hours. Reviewed: Care Plan, H&P, Labs, Medications, Previous Orders, Radiology Changes from previous H/P or p: No Changes Eyes: No Pain, No Vision change, No Conjunctivae inflammation, No Eyelid inflammation, No Other, No Redness ENT: No Ear pain, No Ear discharge, No Nose pain, No Nose discharge, No Nose congestion, No Mouth pain, No Mouth swelling, No Throat pain, No Throat swelling, No Other Cardiovascular: No Chest Pain, No Palpitations, No Orthopnea, No Paroxysmal Noc. Dyspnea, No Edema, No Lt Headedness, No Other Respiratory: No Cough, No Dry; Shortness of breath, SOB with excertion, W heezing; No Hemoptysis, No Pleuritic Pain, No Sputum, No Other Gastrointestinal: No Nausea, No Vomiting, No Abdominal Pain, No Diarrhea, No Constipation, No Melena, No Hematochezia, No Other Genitourinary: No Dysuria, No Frequency, No Incontinence, No Hematuria, No Retention, No Other Musculoskeletal: No other, No neck pain, No shoulder pain, No arm pain, No back pain, No hand pain, No leg pain, No foot pain Skin: No Rash, No Lesions, No Jaundice, No Bruising, No Other Objective Vitals Vital Signs Date Time Temp Pulse Resp B/P (MAP) Pulse Ox O2 Delivery O2 Flow Rate FiO2 02/03/25 09:11 71 18 99 02/03/25 09:02 Room Air 02/03/25 09:02 0 21 02/03/25 08:34 97.9 124/61 (82) 97.9 Intake/Output Intake and Output 02/03/25 07:00 Intake Total 3600 ml Balance 3600 ml Intake Oral 2300 ml IV Total 1300 ml # Voids 35 General Appearance: Alert, Oriented X3, Cooperative, No acute distress HEENT: Atraumatic, PERRLA, EOMI, Mucous membr. moist/pink Neck: Supple Lungs: Clear to auscultation, Normal air movement Cardiovascular: Regular rate, Normal S1, Normal S2, No murmurs, Gallops, Rubs Abdomen: Normal bowel sounds, Soft, No tenderness Neuro: Cranial nerves 3-12 NL Psych/Mental Status: Mental status NL Medications Current Medications Medications Dose Ordered Sig/Shira Route Start Time Stop Time Status Last Admin Dose Admin Albuterol 2.5 mg Q4HR NEB 01/31/25 14:00 02/03/25 09:01 2.5 MG Ipratropium [place] 0.5 mg Q4HR NEB 01/31/25 14:00 02/03/25 09:01 0.5 MG Methylprednisolone Sodium Succinate 40 mg Q8HR IV 01/31/25 14:00 02/03/25 05:05 40 MG Sodium Chloride 1,000 ml @ 70 mls/hr [id number] IV 01/31/25 13:00 02/02/25 23:03 70 MLS/HR Ondansetron HCl 4 mg Q4HP PRN IV 01/31/25 13:00 Docusate Sodium 100 mg BIDPRN PRN PO 01/31/25 13:00 02/02/25 10:50 100 MG Enoxaparin Sodium 40 mg DAILY SC 02/01/25 10:00 02/01/25 09:24 40 MG Morphine Sulfate 2 mg Q4HPRN PRN IV 01/31/25 13:00 01/31/25 21:49 2 MG Pantoprazole Sodium 40 mg DAILY IV 02/01/25 10:00 02/03/25 10:54 40 MG Nitroglycerin 0.4 mg Q5MINP PRN SL 01/31/25 13:45 Ceftriaxone Sodium 50 ml @ 100 mls/hr DAILY@09 IV 02/01/25 09:00 02/03/25 08:42 100 MLS/HR Azithromycin 250 ml @ 125 mls/hr DAILY IV 02/01/25 10:00 02/03/25 10:54 125 MLS/HR Gabapentin 300 mg TID PO 02/01/25 22:00 02/03/25 05:05 300 MG Laboratory Results Laboratory Tests 02/03/25 06:19 Chemistry Test 02/03/25 06:19 Calcium Level 9.4 mg/dL (8.7-10.4) Urinalysis Test 01/31/25 12:36 Urine Color Light-yellow (Yellow) Urine Clarity Clear (Clear) Urine pH 6.5 (5.0-9.0) Urine Specific [place] 1.016 (1.001-1.035) Urine Protein Negative (Negative) Urine Ketones 1+ (Negative) H Urine Blood Negative /uL (Negative) Urine Nitrite Negative (Negative) Urine Bilirubin Negative (Negative) Urine Urobilinogen Normal mg/dL (Negative) Urine Leukocyte Esterase Negative /uL (Negative) Urine RBC 8 /hpf (0 - 4) Urine Microscopic WBC 1 /HPF (0-5) Urine Squamous Epithelial Cells Few /hpf (<5) Urine Bacteria None seen /hpf (None Seen) Urine Glucose 1+ mg/dL (Normal) H Labs and/or images reviewed: Labs reviewed by me Assessment/Plan Assessment/Plan Acute hypoxic respiratory distress likely related to acute asthma exacerbation Acute asthma exacerbation Pneumonia secondary to Gram-positive pneumonia Cough Continuing current management. Continuing with IV antibiotic Rocephin and Zithromax. Continuing with Solu-Medrol. Continuing with nebulizer. Robitussin p.r.n. 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 This medical document was created using an electronic medical record system with [employer] computerized dictation system. Although this document has been carefully reviewed, there may still be some phonetic and typographical errors. These areas are purely typographical due to imperfections of the software programs, and do not reflect any compromise in the patient's medical care. Plan discussed with: Patient My Orders Orders - NADYA LANDRY MD Procedure Category Date Status Time *Consult CONS 02/02/25 Transmitted / 14:30 Complete Blood Count LAB 02/04/25 Verified 05:00 Complete Blood Count LAB 02/05/25 Verified 05:00 Complete Blood Count LAB 02/06/25 Verified 05:00 Complete Blood Count LAB 02/07/25 Verified 05:00 Basic Metabolic Panel LAB 02/04/25 Verified 05:00 Basic Metabolic Panel LAB 02/05/25 Verified 05:00 Basic Metabolic Panel LAB 02/06/25 Verified 05:00 Basic Metabolic Panel LAB 02/07/25 Verified 05:00 Date of Service: Feb 03, 2025 Billing Provider: NADYA LANDRY MD Common Visit Codes: [id number] INP/OBS CARE(HIGH) NADYA LANDRY MD Feb 03, 2025 10:56
[2025-02-03] MEDS: POLYETHYLENE GLYCOL 17 GM PWDR PO PRN (11:48)
[2025-02-03] MEDS: POLYETHYLENE GLYCOL 17 GM PWDR ONE (11:50)
--- NOTE | 2025-02-03 16:11 | DVHINCON2 ---
Date of service: Feb 02, [address] Bustillos Reason for Consultation Shortness of breath History of Present Illness History Source: Patient Exam Limitations: No limitations HPI Patient is a 84-year old lady with a history asthma, allergies and frequent pneumonia who presented with sinus pressure, shortness of breath and cough. Was seen in the emergency room where she was admitted for acute flare up of asthma and she was started on steroids course. Chest x-ray unremarkable, pulmonology was consulted to assist in management. Home Meds Reported Medications Fentanyl (Fentanyl) 12 Mcg/Hr Dis, 12 MCG TD Q72HRS 01/03/11 Past Medical History Cardiac: No pertinent Hx Pulmonary: Asthma, Pneumonia Central Nervous System: No pertinent Hx GI: No pertinent Hx Hemotology/Oncology: No pertinent Hx Hepatobiliary: No pertinent Hx Psychiatric: No pertinent Hx Musculoskeletal: No pertinent Hx Rheumotologic: No pertinent Hx Infectious Disease: No peritnent Hx ENT: No pertinent Hx Renal/: No pertinent Hx Endocrine: No pertinent Hx Dermatology: No pertinent Hx Past Surgical History: No pertinent Hx Family History: DM Patient Family History: Chronic obstructive lung disease (situation) G8 MOTHER Family history: Diabetes mellitus G8 FATHER Smoker: No Hx (Negative) Alocohol: None Drugs: None Domestic Violence: Neg Review of Systems Pulmonary/Respiratory: Dyspnea, Cough H&P Exam Vital Signs Vital Signs Date Time Temp Pulse Resp B/P (MAP) Pulse Ox O2 Delivery O2 Flow Rate FiO2 02/03/25 13:11 76 18 95 02/03/25 13:11 Room Air* 0 21 02/03/25 13:00 97.9 114/59 (77) 97.9 General Appeara: Well developed, Well nourished, Normal Appearance Head Exam: Normal inspection Neck Exam: Normal inspection, Non-tender, Normal alignment Eye Exam: bilateral eye Normal inspection, bilateral eye PERRL, bilateral eye EOMI Ear Exam: bilateral ear Auricle normal, bilateral ear Canal normal, bilateral ear TM normal Nasal Exam: Normal inspection Mouth: Normal Inspection Pulmonary/Respiratory: Decreased breath sounds Cardiovascular/Chest: Normal inspection Peripheral Pulses: 4+ Radial (R), 4+ Radial (L), 4+ Brachial (R), 4+ Brachial (L) Abdominal Exam: Normal bowel sounds Labs/Xrays Labs Test 02/03/25 06:19 02/01/25 06:14 01/31/25 17:01 01/31/25 12:58 Range/Units White Blood Count 8.0 # 4.4-10.8 10^3/uL Red Blood Count 3.71 L 4.0-5.20 10^6/uL Hemoglobin 11.5 L 12.2-16.2 g/dL Hematocrit 33.1 L 36.0-46.0 % Mean Corpuscular Volume 89.1 80.0-100.0 fL Mean Corpuscular Hemoglobin 30.9 28.0-32.0 pg Mean Corpuscular Hemoglobin Concent 34.7 32.0-36.0 g/dL Red Cell Distribution Width 13.9 11.8-14.3 % Platelet Count 187 140-450 10^3/uL Mean Platelet Volume 9.2 6.9-10.8 fL Neutrophils (%) (Auto) 81.2 H 37.0-80.0 % Lymphocytes (%) (Auto) 15.2 10.0-50.0 % Monocytes (%) (Auto) 3.5 0.0-12.0 % Eosinophils (%) (Auto) 0.0 0.0-7.0 % Basophils (%) (Auto) 0.1 0.0-2.0 % Neutrophils # (Auto) 6.5 1.6-8.6 10 ^3/uL Lymphocytes # (Auto) 1.2 0.4-5.4 10 ^3/uL Monocytes # (Auto) 0.3 0-1.3 10 ^3/uL Eosinophils # (Auto) 0 0-0.8 10 ^3/uL Basophils # (Auto) 0 0-0.2 10 ^3/uL Nucleated Red Blood Cells 0.0 % Sodium Level 144 136-145 mmol/L Potassium Level 4.1 3.5-5.1 mmol/L Chloride Level 109 H 98-107 mmol/L Carbon Dioxide Level 25 20-31 mmol/L Anion Gap 10 5-15 Blood Urea Nitrogen 12 9-23 mg/dL Creatinine 0.72 0.550-1.02 mg/dL Glomerular Filtration Rate Calc 83 >90 mL/min BUN/Creatinine Ratio 16.7 10.0-20.0 Serum Glucose 127 H 74-106 mg/dL Calcium Level 9.4 8.7-10.4 mg/dL Total Bilirubin 0.5 0.2-1.0 mg/dL Aspartate Amino Transferase (AST) 17 13-40 U/L Alanine Aminotransferase (ALT) 15 7-40 U/L Alkaline Phosphatase 59 46-116 U/L Total Protein 6.7 5.7-8.2 g/dL Albumin 4.1 3.2-4.8 g/dL Influenza Type A Antigen Negative Negative Influenza Type B Antigen Negative Negative SARS-CoV-2 Antigen (Rapid) Negative NEGATIVE Troponin I High Sensitivity 3 L </=34 ng/L Test 01/31/25 12:36 01/31/25 11:26 Range/Units Urine Color Light-yellow Yellow Urine Clarity Clear Clear Urine pH 6.5 5.0-9.0 Urine Specific [place] 1.016 1.001-1.035 Urine Protein Negative Negative Urine Ketones 1+ H Negative Urine Blood Negative Negative /uL Urine Nitrite Negative Negative Urine Bilirubin Negative Negative Urine Urobilinogen Normal Negative mg/dL Urine Leukocyte Esterase Negative Negative /uL Urine RBC 8 0 - 4 /hpf Urine Microscopic WBC 1 0-5 /HPF Urine Squamous Epithelial Cells Few <5 /hpf Urine Bacteria None seen None Seen /hpf Urine Glucose 1+ H Normal mg/dL D-Dimer, Quantitative 1.34 H 0.0-0.49 mg/L FEU Assessment/Plan Plan Impression Acute asthma Allergies Sinusitis Dyspnea Patient seen and examined Events Low oxygen requirements On room air Vital signs stable Labs and imaging reviewed Management Supplemental oxygen as needed Titrate to maintain sats 90% or above Incentive spirometry Steroids Bronchodilators Monitor renal function Monitor electrolytes Supplement as needed DVT prophylaxis Plan discussed with: Patient MARSHAL FRANCIS MD Feb 03, 2025 16:11
--- NOTE | 2025-02-03 16:11 | DVHPN2 ---
Progress Note - Dictate Date Seen: Feb 03, 2025 Medical Necessity Reason Pt with a Central, PICC or Fol: No vital signs Vital Sign Date Time Temp Pulse Resp B/P (MAP) Pulse Ox O2 Delivery O2 Flow Rate FiO2 02/03/25 13:11 76 18 95 02/03/25 13:11 Room Air* 0 21 02/03/25 13:00 97.9 114/59 (77) 97.9 Total Intake and Output 02/02/25 02/02/25 02/03/25 15:00 23:00 07:00 Intake Total 1100 ml 2000 ml 500 ml Balance 1100 ml 2000 ml 500 ml medications Current Medications Medications Dose Ordered Sig/Shira Route Start Time Stop Time Status Last Admin Dose Admin Albuterol 2.5 mg Q4HR NEB 01/31/25 14:00 02/03/25 13:10 2.5 MG Ipratropium [place] 0.5 mg Q4HR NEB 01/31/25 14:00 02/03/25 13:11 0.5 MG Methylprednisolone Sodium Succinate 40 mg Q8HR IV 01/31/25 14:00 02/03/25 15:26 40 MG Sodium Chloride 1,000 ml @ 70 mls/hr [id number] IV 01/31/25 13:00 02/03/25 12:30 70 MLS/HR Ondansetron HCl 4 mg Q4HP PRN IV 01/31/25 13:00 Docusate Sodium 100 mg BIDPRN PRN PO 01/31/25 13:00 02/02/25 10:50 100 MG Enoxaparin Sodium 40 mg DAILY SC 02/01/25 10:00 02/01/25 09:24 40 MG Morphine Sulfate 2 mg Q4HPRN PRN IV 01/31/25 13:00 01/31/25 21:49 2 MG Pantoprazole Sodium 40 mg DAILY IV 02/01/25 10:00 02/03/25 10:54 40 MG Nitroglycerin 0.4 mg Q5MINP PRN SL 01/31/25 13:45 Ceftriaxone Sodium 50 ml @ 100 mls/hr DAILY@09 IV 02/01/25 09:00 02/03/25 08:42 100 MLS/HR Azithromycin 250 ml @ 125 mls/hr DAILY IV 02/01/25 10:00 02/03/25 10:54 125 MLS/HR Gabapentin 300 mg TID PO 02/01/25 22:00 02/03/25 05:05 300 MG Polyethylene Glycol 17 gm DAILYPRN PRN PO 02/03/25 11:15 02/03/25 11:48 17 GM laboratory and microbiology Laboratory Tests 02/03/25 06:19 Test 02/03/25 06:19 Range/Units Serum Glucose 127 H 74-106 mg/dL Assessment/Plan Impression Acute asthma Allergies Sinusitis Dyspnea Patient seen and examined Events Low oxygen requirements On room air No distress Labs and imaging reviewed Management Supplemental oxygen as needed Titrate to maintain sats 90% or above Incentive spirometry Steroids Bronchodilators Monitor renal function Monitor electrolytes Supplement as needed DVT prophylaxis Plan discussed with: Patient MARSHAL FRANCIS MD Feb 03, 2025 16:11
[2025-02-04] VITALS (21 sets, daily range): BP systolic 117–141; BP diastolic 53–81; PULSE 63–85; RESP 16–18; TEMP 97.9–98.1; O2SAT 91–100
[2025-02-04 07:46] LABS: Chloride 106 mmol/L (98-107); Sodium 142 mmol/L (136-145)
[2025-02-04 07:47] LABS: Anion Gap 11 (5-15); Calcium 9.2 mg/dL (8.7-10.4); Carbon Dioxide 25 mmol/L (20-31)
[2025-02-04 07:53] LABS: BUN/Creatinine Ratio 12.9 (10.0-20.0)
[2025-02-04 07:54] LABS: Blood Urea Nitrogen 9 mg/dL (9-23); Glucose 124 mg/dL (74-106); Potassium 3.5 mmol/L (3.5-5.1)
[2025-02-04 08:01] LABS: Hematocrit 34.9 % (36.0-46.0); Hemoglobin 12.2 g/dL (12.2-16.2); Mean Corpuscular Hemoglobin 31.1 pg (28.0-32.0); Mean Corpuscular Volume 88.7 fL (80.0-100.0); Nucleated Red Blood Cells % 0.1 %
--- NOTE | 2025-02-04 10:14 | DVHPN2 ---
Subjective The patient is seen and examined at bedside. Complain of shortness for breath. Complain Of severe wheezing. Patient feel a little bit better. Reviewed: Care Plan, H&P, Labs, Medications, Previous Orders, Radiology Changes from previous H/P or p: No Changes Eyes: No Pain, No Vision change, No Conjunctivae inflammation, No Eyelid inflammation, No Other, No Redness ENT: No Ear pain, No Ear discharge, No Nose pain, No Nose discharge, No Nose congestion, No Mouth pain, No Mouth swelling, No Throat pain, No Throat swelling, No Other Cardiovascular: No Chest Pain, No Palpitations, No Orthopnea, No Paroxysmal Noc. Dyspnea, No Edema, No Lt Headedness, No Other Respiratory: No Cough, No Dry; Shortness of breath, SOB with excertion, W heezing; No Hemoptysis, No Pleuritic Pain, No Sputum, No Other Gastrointestinal: No Nausea, No Vomiting, No Abdominal Pain, No Diarrhea, No Constipation, No Melena, No Hematochezia, No Other Genitourinary: No Dysuria, No Frequency, No Incontinence, No Hematuria, No Retention, No Other Musculoskeletal: No other, No neck pain, No shoulder pain, No arm pain, No back pain, No hand pain, No leg pain, No foot pain Skin: No Rash, No Lesions, No Jaundice, No Bruising, No Other Objective Vitals Vital Signs Date Time Temp Pulse Resp B/P (MAP) Pulse Ox O2 Delivery O2 Flow Rate FiO2 02/04/25 09:30 72 16 100 02/04/25 09:24 Room Air 02/04/25 09:24 0 21 02/04/25 08:37 97.9 120/54 (76) 97.9 Intake/Output Intake and Output 02/04/25 07:00 Intake Total 1200 ml Balance 1200 ml Intake Oral 1150 ml IV Total 50 ml # Voids 17 General Appearance: Alert, Oriented X3, Cooperative, No acute distress HEENT: Atraumatic, PERRLA, EOMI, Mucous membr. moist/pink Neck: Supple Lungs: Clear to auscultation, Normal air movement Cardiovascular: Regular rate, Normal S1, Normal S2, No murmurs, Gallops, Rubs Abdomen: Normal bowel sounds, Soft, No tenderness Neuro: Cranial nerves 3-12 NL Psych/Mental Status: Mental status NL Medications Current Medications Medications Dose Ordered Sig/Shira Route Start Time Stop Time Status Last Admin Dose Admin Albuterol 2.5 mg Q4HR NEB 01/31/25 14:00 02/04/25 09:23 2.5 MG Ipratropium [place] 0.5 mg Q4HR NEB 01/31/25 14:00 02/04/25 09:24 0.5 MG Methylprednisolone Sodium Succinate 40 mg Q8HR IV 01/31/25 14:00 02/04/25 06:19 40 MG Sodium Chloride 1,000 ml @ 70 mls/hr [id number] IV 01/31/25 13:00 02/03/25 12:30 70 MLS/HR Ondansetron HCl 4 mg Q4HP PRN IV 01/31/25 13:00 Docusate Sodium 100 mg BIDPRN PRN PO 01/31/25 13:00 02/02/25 10:50 100 MG Enoxaparin Sodium 40 mg DAILY SC 02/01/25 10:00 02/01/25 09:24 40 MG Morphine Sulfate 2 mg Q4HPRN PRN IV 01/31/25 13:00 01/31/25 21:49 2 MG Pantoprazole Sodium 40 mg DAILY IV 02/01/25 10:00 02/03/25 10:54 40 MG Nitroglycerin 0.4 mg Q5MINP PRN SL 01/31/25 13:45 Ceftriaxone Sodium 50 ml @ 100 mls/hr DAILY@09 IV 02/01/25 09:00 02/03/25 08:42 100 MLS/HR Azithromycin 250 ml @ 125 mls/hr DAILY IV 02/01/25 10:00 02/03/25 10:54 125 MLS/HR Gabapentin 300 mg TID PO 02/01/25 22:00 02/04/25 06:19 300 MG Polyethylene Glycol 17 gm DAILYPRN PRN PO 02/03/25 11:15 02/03/25 11:48 17 GM Laboratory Results Laboratory Tests 02/04/25 06:28 Chemistry Test 02/04/25 06:28 Calcium Level 9.2 mg/dL (8.7-10.4) Urinalysis Test 01/31/25 12:36 Urine Color Light-yellow (Yellow) Urine Clarity Clear (Clear) Urine pH 6.5 (5.0-9.0) Urine Specific [place] 1.016 (1.001-1.035) Urine Protein Negative (Negative) Urine Ketones 1+ (Negative) H Urine Blood Negative /uL (Negative) Urine Nitrite Negative (Negative) Urine Bilirubin Negative (Negative) Urine Urobilinogen Normal mg/dL (Negative) Urine Leukocyte Esterase Negative /uL (Negative) Urine RBC 8 /hpf (0 - 4) Urine Microscopic WBC 1 /HPF (0-5) Urine Squamous Epithelial Cells Few /hpf (<5) Urine Bacteria None seen /hpf (None Seen) Urine Glucose 1+ mg/dL (Normal) H Labs and/or images reviewed: Labs reviewed by me Assessment/Plan Assessment/Plan Acute hypoxic respiratory distress likely related to acute asthma exacerbation Acute asthma exacerbation Pneumonia secondary to Gram-positive pneumonia Cough Continuing current management. Continuing with IV antibiotic Rocephin and Zithromax. Continuing with Solu-Medrol. Continuing with nebulizer. Robitussin p.r.n. for cough Aprreciate [employer]etting Machine Tender input. Discharge planning. This medical document was created using an electronic medical record system with [employer] direct computerized dictation system. Although this document has been carefully reviewed, there may still be some phonetic and typographical errors. These areas are purely typographical due to imperfections of the software programs, and do not reflect any compromise in the patient's medical care. Plan discussed with: Patient My Orders Orders - NADYA LANDRY MD Procedure Category Date Status Time Polyethylene Glycol PHA 02/03/25 In Process 17g Powder (Miralax 11:15 Date of Service: Feb 04, 2025 Billing Provider: NADYA LANDRY MD Common Visit Codes: [id number] INP/OBS CARE(HIGH) NADYA LANDRY MD Feb 04, 2025 10:14
[2025-02-04] MEDS: LACTULOSE 20Gm/30ML SOLN PO SCH (14:02)
--- NOTE | 2025-02-04 14:09 | DVHPN2 ---
Progress Note - Dictate Date Seen: Feb 04, 2025 Medical Necessity Reason Pt with a Central, PICC or Fol: No vital signs Vital Sign Date Time Temp Pulse Resp B/P (MAP) Pulse Ox O2 Delivery O2 Flow Rate FiO2 02/04/25 12:36 97.9 71 17 126/59 (81) 91 97.9 02/04/25 09:24 Room Air 02/04/25 09:24 0 21 Total Intake and Output 02/03/25 02/03/25 02/04/25 15:00 23:00 07:00 Intake Total 50 ml 250 ml 900 ml Balance 50 ml 250 ml 900 ml medications Current Medications Medications Dose Ordered Sig/Shira Route Start Time Stop Time Status Last Admin Dose Admin Albuterol 2.5 mg Q4HR NEB 01/31/25 14:00 02/04/25 09:23 2.5 MG Ipratropium [place] 0.5 mg Q4HR NEB 01/31/25 14:00 02/04/25 09:24 0.5 MG Methylprednisolone Sodium Succinate 40 mg Q8HR IV 01/31/25 14:00 02/04/25 06:19 40 MG Sodium Chloride 1,000 ml @ 70 mls/hr [id number] IV 01/31/25 13:00 02/03/25 12:30 70 MLS/HR Ondansetron HCl 4 mg Q4HP PRN IV 01/31/25 13:00 Docusate Sodium 100 mg BIDPRN PRN PO 01/31/25 13:00 02/02/25 10:50 100 MG Enoxaparin Sodium 40 mg DAILY SC 02/01/25 10:00 02/01/25 09:24 40 MG Morphine Sulfate 2 mg Q4HPRN PRN IV 01/31/25 13:00 01/31/25 21:49 2 MG Pantoprazole Sodium 40 mg DAILY IV 02/01/25 10:00 02/03/25 10:54 40 MG Nitroglycerin 0.4 mg Q5MINP PRN SL 01/31/25 13:45 Ceftriaxone Sodium 50 ml @ 100 mls/hr DAILY@09 IV 02/01/25 09:00 02/04/25 10:51 100 MLS/HR Azithromycin 250 ml @ 125 mls/hr DAILY IV 02/01/25 10:00 02/04/25 10:57 125 MLS/HR Gabapentin 300 mg TID PO 02/01/25 22:00 02/04/25 06:19 300 MG Polyethylene Glycol 17 gm DAILYPRN PRN PO 02/03/25 11:15 02/03/25 11:48 17 GM Lactulose 30 ml Q4HR PO 02/04/25 14:00 UNV laboratory and microbiology Laboratory Tests 02/04/25 06:28 Test 02/04/25 06:28 Range/Units Serum Glucose 124 H 74-106 mg/dL Assessment/Plan Impression Acute asthma Allergies Sinusitis Dyspnea Patient seen and examined Events Low oxygen requirements On room air No acute events Labs and imaging reviewed Management Supplemental oxygen as needed Titrate to maintain sats 90% or above Incentive spirometry Steroids Bronchodilators Monitor renal function Monitor electrolytes Supplement as needed DVT prophylaxis Plan discussed with: Patient MARSHAL FRANCIS MD Feb 04, 2025 14:09
[2025-02-05] VITALS (13 sets, daily range): BP systolic 122–142; BP diastolic 52–85; PULSE 67–93; RESP 15–18; TEMP 36.2; O2SAT 93–100
[2025-02-05 06:37] LABS: Hematocrit 34.1 % (36.0-46.0); Hemoglobin 11.9 g/dL (12.2-16.2); Mean Corpuscular Hemoglobin 30.9 pg (28.0-32.0); Mean Corpuscular Volume 88.4 fL (80.0-100.0); Nucleated Red Blood Cells % 0.4 %
[2025-02-05 06:44] LABS: Anion Gap 12 (5-15); Carbon Dioxide 22 mmol/L (20-31); Chloride 106 mmol/L (98-107); Potassium 3.7 mmol/L (3.5-5.1); Sodium 140 mmol/L (136-145)
[2025-02-05 06:45] LABS: Calcium 9.2 mg/dL (8.7-10.4)
[2025-02-05 06:50] LABS: BUN/Creatinine Ratio 13.6 (10.0-20.0); Blood Urea Nitrogen 9 mg/dL (9-23)
[2025-02-05 06:51] LABS: Glucose 130 mg/dL (74-106)
--- NOTE | 2025-02-05 11:27 | DVHPN2 ---
Subjective The patient is seen and examined at bedside. Complain of shortness for breath. Complain Of severe wheezing. Patient feel a little bit better. Reviewed: Care Plan, H&P, Labs, Medications, Previous Orders, Radiology Eyes: No Pain, No Vision change, No Conjunctivae inflammation, No Eyelid inflammation, No Other, No Redness ENT: No Ear pain, No Ear discharge, No Nose pain, No Nose discharge, No Nose congestion, No Mouth pain, No Mouth swelling, No Throat pain, No Throat swelling, No Other Cardiovascular: No Chest Pain, No Palpitations, No Orthopnea, No Paroxysmal Noc. Dyspnea, No Edema, No Lt Headedness, No Other Respiratory: No Cough, No Dry; Shortness of breath, SOB with excertion, W heezing; No Hemoptysis, No Pleuritic Pain, No Sputum, No Other Gastrointestinal: No Nausea, No Vomiting, No Abdominal Pain, No Diarrhea, No Constipation, No Melena, No Hematochezia, No Other Genitourinary: No Dysuria, No Frequency, No Incontinence, No Hematuria, No Retention, No Other Musculoskeletal: No other, No neck pain, No shoulder pain, No arm pain, No back pain, No hand pain, No leg pain, No foot pain Skin: No Rash, No Lesions, No Jaundice, No Bruising, No Other Objective Vitals Vital Signs Date Time Temp Pulse Resp B/P (MAP) Pulse Ox O2 Delivery O2 Flow Rate FiO2 02/05/25 09:48 75 16 100 02/05/25 09:42 Room Air 0.0 02/05/25 09:42 21 02/05/25 08:30 98.1 122/52 (75) 98.1 Intake/Output Intake and Output 02/05/25 07:00 Intake Total 1700 ml Balance 1700 ml Intake Oral 1400 ml IV Total 300 ml # Voids 19 # Bowel Movements 4 General Appearance: Alert, Oriented X3, Cooperative, No acute distress HEENT: Atraumatic, PERRLA, EOMI, Mucous membr. moist/pink Neck: Supple Lungs: Clear to auscultation, Normal air movement Cardiovascular: Regular rate, Normal S1, Normal S2, No murmurs, Gallops, Rubs Abdomen: Normal bowel sounds, Soft, No tenderness Neuro: Cranial nerves 3-12 NL Psych/Mental Status: Mental status NL Medications Current Medications Medications Dose Ordered Sig/Shira Route Start Time Stop Time Status Last Admin Dose Admin Albuterol 2.5 mg Q4HR NEB 01/31/25 14:00 02/05/25 09:42 2.5 MG Ipratropium [place] 0.5 mg Q4HR NEB 01/31/25 14:00 02/05/25 09:42 0.5 MG Methylprednisolone Sodium Succinate 40 mg Q8HR IV 01/31/25 14:00 02/05/25 06:09 40 MG Sodium Chloride 1,000 ml @ 70 mls/hr [id number] IV 01/31/25 13:00 02/05/25 07:24 70 MLS/HR Ondansetron HCl 4 mg Q4HP PRN IV 01/31/25 13:00 Docusate Sodium 100 mg BIDPRN PRN PO 01/31/25 13:00 02/02/25 10:50 100 MG Enoxaparin Sodium 40 mg DAILY SC 02/01/25 10:00 02/01/25 09:24 40 MG Morphine Sulfate 2 mg Q4HPRN PRN IV 01/31/25 13:00 01/31/25 21:49 2 MG Pantoprazole Sodium 40 mg DAILY IV 02/01/25 10:00 02/05/25 10:04 40 MG Nitroglycerin 0.4 mg Q5MINP PRN SL 01/31/25 13:45 Ceftriaxone Sodium 50 ml @ 100 mls/hr DAILY@09 IV 02/01/25 09:00 02/05/25 10:02 100 MLS/HR Azithromycin 250 ml @ 125 mls/hr DAILY IV 02/01/25 10:00 02/05/25 10:20 125 MLS/HR Gabapentin 300 mg TID PO 02/01/25 22:00 02/05/25 06:09 300 MG Polyethylene Glycol 17 gm DAILYPRN PRN PO 02/03/25 11:15 02/03/25 11:48 17 GM Lactulose 30 ml Q4HR PO 02/04/25 14:00 02/05/25 10:03 30 ML Laboratory Results Laboratory Tests 02/05/25 05:41 Chemistry Test 02/05/25 05:41 Calcium Level 9.2 mg/dL (8.7-10.4) Urinalysis Test 01/31/25 12:36 Urine Color Light-yellow (Yellow) Urine Clarity Clear (Clear) Urine pH 6.5 (5.0-9.0) Urine Specific [place] 1.016 (1.001-1.035) Urine Protein Negative (Negative) Urine Ketones 1+ (Negative) H Urine Blood Negative /uL (Negative) Urine Nitrite Negative (Negative) Urine Bilirubin Negative (Negative) Urine Urobilinogen Normal mg/dL (Negative) Urine Leukocyte Esterase Negative /uL (Negative) Urine RBC 8 /hpf (0 - 4) Urine Microscopic WBC 1 /HPF (0-5) Urine Squamous Epithelial Cells Few /hpf (<5) Urine Bacteria None seen /hpf (None Seen) Urine Glucose 1+ mg/dL (Normal) H Assessment/Plan Assessment/Plan Acute hypoxic respiratory distress likely related to acute asthma exacerbation Acute asthma exacerbation Pneumonia secondary to Gram-positive pneumonia Cough Continuing current management. Continuing with IV antibiotic Rocephin and Zithromax. Continuing with Solu-Medrol. Continuing with nebulizer. Robitussin p.r.n. for cough Aprreciate [employer]er input. Discharge planning. This medical document was created using an electronic medical record system with [employer] direct computerized dictation system. Although this document has been carefully reviewed, there may still be some phonetic and typographical errors. These areas are purely typographical due to imperfections of the software programs, and do not reflect any compromise in the patient's medical care. My Orders Orders - NADYA LANDRY MD Procedure Category Date Status Time Lactulose Oral PHA 02/04/25 In Process 14:00 NADYA LANDRY MD Feb 05, 2025 11:27
[2025-02-05] MEDS ORDERED: AZIT-185 PO (11:30)
[2025-02-05] MEDS ORDERED: METH4PAK PO (11:30)
--- NOTE | 2025-02-05 11:31 | DVHDS2 ---
Discharge Summary Date of Admission Jan 31, 2025 at 13:35 Date of Discharge: Feb 05, 2025 Admitting Diagnosis Acute asthma Allergies Sinusitis Dyspnea Labs/Diagnostic Data: Laboratory Results Test 02/05/25 05:41 02/01/25 06:14 01/31/25 17:01 01/31/25 12:58 White Blood Count 6.6 10^3/uL (4.4-10.8) Red Blood Count 3.86 10^6/uL (4.0-5.20) Hemoglobin 11.9 g/dL (12.2-16.2) Hematocrit 34.1 % (36.0-46.0) Mean Corpuscular Volume 88.4 fL (80.0-100.0) Mean Corpuscular Hemoglobin 30.9 pg (28.0-32.0) Mean Corpuscular Hemoglobin Concent 34.9 g/dL (32.0-36.0) Red Cell Distribution Width 13.5 % (11.8-14.3) Platelet Count 206 10^3/uL (140-450) Mean Platelet Volume 10.2 fL (6.9-10.8) Neutrophils (%) (Auto) 78.3 % (37.0-80.0) Lymphocytes (%) (Auto) 16.4 % (10.0-50.0) Monocytes (%) (Auto) 4.8 % (0.0-12.0) Eosinophils (%) (Auto) 0.1 % (0.0-7.0) Basophils (%) (Auto) 0.4 % (0.0-2.0) Neutrophils # (Auto) 5.2 10 ^3/uL (1.6-8.6) Lymphocytes # (Auto) 1.1 10 ^3/uL (0.4-5.4) Monocytes # (Auto) 0.3 10 ^3/uL (0-1.3) Eosinophils # (Auto) 0 10 ^3/uL (0-0.8) Basophils # (Auto) 0 10 ^3/uL (0-0.2) Nucleated Red Blood Cells 0.4 % Sodium Level 140 mmol/L (136-145) Potassium Level 3.7 mmol/L (3.5-5.1) Chloride Level 106 mmol/L (98-107) Carbon Dioxide Level 22 mmol/L (20-31) Anion Gap 12 (5-15) Blood Urea Nitrogen 9 mg/dL (9-23) Creatinine 0.66 mg/dL (0.550-1.02) Glomerular Filtration Rate Calc 88 mL/min (>90) BUN/Creatinine Ratio 13.6 (10.0-20.0) Serum Glucose 130 mg/dL (74-106) Calcium Level 9.2 mg/dL (8.7-10.4) Total Bilirubin 0.5 mg/dL (0.2-1.0) Aspartate Amino Transferase (AST) 17 U/L (13-40) Alanine Aminotransferase (ALT) 15 U/L (7-40) Alkaline Phosphatase 59 U/L (46-116) Total Protein 6.7 g/dL (5.7-8.2) Albumin 4.1 g/dL (3.2-4.8) Influenza Type A Antigen Negative (Negative) Influenza Type B Antigen Negative (Negative) SARS-CoV-2 Antigen (Rapid) Negative (NEGATIVE) Troponin I High Sensitivity 3 ng/L (</=34) Test 01/31/25 12:36 01/31/25 11:26 Urine Color Light-yellow (Yellow) Urine Clarity Clear (Clear) Urine pH 6.5 (5.0-9.0) Urine Specific [place] 1.016 (1.001-1.035) Urine Protein Negative (Negative) Urine Ketones 1+ (Negative) Urine Blood Negative /uL (Negative) Urine Nitrite Negative (Negative) Urine Bilirubin Negative (Negative) Urine Urobilinogen Normal mg/dL (Negative) Urine Leukocyte Esterase Negative /uL (Negative) Urine RBC 8 /hpf (0 - 4) Urine Microscopic WBC 1 /HPF (0-5) Urine Squamous Epithelial Cells Few /hpf (<5) Urine Bacteria None seen /hpf (None Seen) Urine Glucose 1+ mg/dL (Normal) D-Dimer, Quantitative 1.34 mg/L FEU (0.0-0.49) Other Laboratory Tests 02/05/25 05:41 Brief Hx & Hospital Course: This is a 84 years old female with past medical history bronchial asthma, pneumonia, hysterectomy, come to emergency department because severe shortness for three day. Patient took inhaler at home but shortness for breath did not improve. The patient said she had history of asthma on and off through years. She always developed pneumonia after exacerbation of asthma. She did not see any punch finisher. She said her primary care physician did not really help her much. Patient usually hospitalized once per year for her asthma exacerbation. In the ER chest x-ray was done showed no acute process. The patient was admitted. The patient was started on Solu-Medrol IV, ceftriaxone and Zithromax antibiotic IV and also nebulizer. Pulmonology was consulted. Did not recommend any further treatment other than IV steroids, nebulizer, and antibiotic. The patient continuing to have cough which she was given cough suppression, and wheezing. Subsequently the patient improved. The patient in room air today. The patient did not requiring oxygen. The patient will be discharged home. Advised her to follow up with punch finisher per schedule for asthma treatment. Advised her to follow up with primary care physician 1-2 weeks. Activity as tolerated. Diet per home diet. The patient also had three cats at home. Recommend the patient to stay away from the cats, she might have problem with asthma because of the cat dander, and fur. Physical exam: HEENT: Normocephalic atraumatic pupils equal react to light and accommodation. Extraocular muscles intact, conjunctiva pink, oropharynx moist, no thrush, no exudate. Lymphatic: No lymphadenopathy Cardiovascular exam: S1, S2 was heard. No murmurs, rubs, gallops Lung: Clear on auscultation bilaterally, no wheeze, rale, rhonchi. GI: Abdominal soft, nondistended, nontenderness, positive bowel sounds. Extremity: No crepitus, cyanosis, edema. Pedal pulses present bilateral. Full range of motion. Skin: Normal turgor, no rash. Psych: Alert, oriented x3. Neurology: No focal deficits, cranial nerve II to XII grossly intact. This medical document was created using an electronic medical record system with [employer] computerized dictation system. Although this document has been carefully reviewed, there may still be some phonetic and typographical errors. These areas are purely typographical due to imperfections of the software programs, and do not reflect any compromise in the patient's medical care. Condition at Discharge: Stable Final Diagnosis/Problems List Asthma exacerbation Allergic rhinitis Sinusitis Dyspnea Wheezing Discharge Disposition: Home Discharge Instruct/Medications Diet: Regular Activity: No Restrictions, As Tolerated Follow Up/Referral: pcp 1-2 weeks [employer] per schedule Medications: Zpak until finish Medro dose nick until finish Resume home meds Scheduled Azithromycin (Zithromax Tablet), 250 MG PO DAILY Fentanyl (Fentanyl), 12 MCG TD Q72HRS, (Reported) Methylprednisolone (Medrol Dosepak), 4 MG PO UD Discharge Statement: "Patient was advised to return to the ER or call 911 if any headaches, dizziness, shortness of breath, chest pain, abdominal pain, bleeding, fevers, or worsening of medical condition. Patient was counseled about treatment plan, medications, possible side effects, patientverbalized understanding. All questions were answered to the best of my ability. This discharge took greater then 30 minutes in planning, reviewing documentation, counseling the patient, and discussing with other team members." ASSESSMENT ASSESSMENT Assessment Asthma exacerbation Date of Service: Feb 05, 2025 Billing Provider: NADYA LNADRY MD Common Visit Codes: 28552-SGG/OBS DISCH DAY >30min NADYA LANDRY MD Feb 05, 2025 11:31
--- NOTE | 2025-02-05 11:54 | DVHPN2 ---
Progress Note - Dictate Date Seen: Feb 05, 2025 Medical Necessity Reason Pt with a Central, PICC or Fol: No vital signs Vital Sign Date Time Temp Pulse Resp B/P (MAP) Pulse Ox O2 Delivery O2 Flow Rate FiO2 02/05/25 09:48 75 16 100 02/05/25 09:42 Room Air 0.0 02/05/25 09:42 21 02/05/25 08:30 98.1 122/52 (75) 98.1 Total Intake and Output 02/04/25 02/04/25 02/05/25 15:00 23:00 07:00 Intake Total 300 ml 600 ml 800 ml Balance 300 ml 600 ml 800 ml medications Current Medications Medications Dose Ordered Sig/Shira Route Start Time Stop Time Status Last Admin Dose Admin Albuterol 2.5 mg Q4HR NEB 01/31/25 14:00 02/05/25 09:42 2.5 MG Ipratropium [place] 0.5 mg Q4HR NEB 01/31/25 14:00 02/05/25 09:42 0.5 MG Methylprednisolone Sodium Succinate 40 mg Q8HR IV 01/31/25 14:00 02/05/25 06:09 40 MG Sodium Chloride 1,000 ml @ 70 mls/hr [id number] IV 01/31/25 13:00 02/05/25 07:24 70 MLS/HR Ondansetron HCl 4 mg Q4HP PRN IV 01/31/25 13:00 Docusate Sodium 100 mg BIDPRN PRN PO 01/31/25 13:00 02/02/25 10:50 100 MG Enoxaparin Sodium 40 mg DAILY SC 02/01/25 10:00 02/01/25 09:24 40 MG Morphine Sulfate 2 mg Q4HPRN PRN IV 01/31/25 13:00 01/31/25 21:49 2 MG Pantoprazole Sodium 40 mg DAILY IV 02/01/25 10:00 02/05/25 10:04 40 MG Nitroglycerin 0.4 mg Q5MINP PRN SL 01/31/25 13:45 Ceftriaxone Sodium 50 ml @ 100 mls/hr DAILY@09 IV 02/01/25 09:00 02/05/25 10:02 100 MLS/HR Azithromycin 250 ml @ 125 mls/hr DAILY IV 02/01/25 10:00 02/05/25 10:20 125 MLS/HR Gabapentin 300 mg TID PO 02/01/25 22:00 02/05/25 06:09 300 MG Polyethylene Glycol 17 gm DAILYPRN PRN PO 02/03/25 11:15 02/03/25 11:48 17 GM Lactulose 30 ml Q4HR PO 02/04/25 14:00 02/05/25 10:03 30 ML laboratory and microbiology Laboratory Tests 02/05/25 05:41 Test 02/05/25 05:41 Range/Units Serum Glucose 130 H 74-106 mg/dL Assessment/Plan Impression Acute asthma Allergies Sinusitis Dyspnea Patient seen and examined Events Low oxygen requirements On room air No acute events Labs and imaging reviewed Management Supplemental oxygen as needed Titrate to maintain sats 90% or above Incentive spirometry Steroids Bronchodilators Monitor renal function Monitor electrolytes Supplement as needed DVT prophylaxis Plan discussed with: Patient MARSHAL FRANCIS MD Feb 05, 2025 11:53
== END 2025-02-05 15:15 | disposition home or self-care (01) | DRG 203 ==
LOC: ER 11:16 → OVERFLOW 13:35 → CENTRAL 17:46
PROVIDERS: ADMIT Internal Medicine; ATTEND Internal Medicine
DX: J45.901 Unspecified asthma with (acute) exacerbation (principal); Z20.822 Contact with and (suspected) exposure to COVID-19; J32.9 Chronic sinusitis, unspecified; J98.4 Other disorders of lung; J32.8 Other chronic sinusitis; Z90.710 Acquired absence of both cervix and uterus; Z83.3 Family history of diabetes mellitus; Z82.5 Family history of asthma and other chronic lower respiratory diseases; Z79.899 Other long term (current) drug therapy
CPT/HCPCS: 36415; 71045; 80048; 80053; 81001; 84484; 85025; 85379; 87426; 87804; 93005; 94640; 99291; 99292; G0378; J2470